=== PATIENT | male | born 1970 | race Caucasian/White ===

== ENCOUNTER 2021-06-27 13:22 | Emergency (ER) | payer OTHER, SELFPAY ==
--- NOTE | ~2021-06-27 | XR_ITS ---
EXAMINATION: XR chest 2V DATE: 06/27/2021 13:47 INDICATION: Fever and shortness of breath, COVID exposure TECHNIQUE: PA and lateral views of the chest are obtained. COMPARISON: None available FINDINGS: There are minimal airspace opacities of the lung bases. There is no pleural effusion or pne umothorax. The cardiomediastinal silhouette is normal. There is moderate thoracic spondylosis. IMPRESSION: 1. Minimal airspace opacities of the lung bases, consistent with atelectasis versus pneumonia. Reviewed, dictated and finalized at location A. IMPRESSION: 1. Minimal airspace opacities of the lung bases, consistent with atelectasis ve rsus pneumonia.
[2021-06-27 13:26] VITALS: BP 163/103; PULSE 113; RESP 14; TEMP 37.2; O2SAT 100
--- NOTE | 2021-06-27 13:34 | PC.NURSE ---
PT states he has been out of bp med for years, he is homeless.
[2021-06-27 14:04] LABS: Basophils Percent Auto 0.2 % (0.2-1.2); Eosinophils Percent Auto 0.2 % (0-4.4); Hematocrit 38.6 % (42.0-52.0); Hemoglobin 12.7 g/dL (14.0-18.0); Immature Granulocyte Absolute 0.01 K/mm3 (0.00-0.031); Immature Granulocyte Percent A 0.2 % (0-0.5); Lymphocytes Absolute Auto 0.86 K/mm3 (0.9-3.2); Lymphocytes Percent Auto 15.7 % (18.3-44.2); Mean Corpuscular HGB Conc 32.9 g/dl (32-36); Mean Corpuscular Hemoglobin 30.6 pg (26-34); Mean Platelet Volume 10.2 fl (7.4-10.4); Monocytes Absolute Auto 0.6 K/mm3 (0.1-0.6); Monocytes Percent Auto 10.8 % (2.6-8.5); Neutrophils Percent Auto 72.9 % (45.5-73.1); Platelet Count Result 225 k/mm3 (150-375); Red Blood Count 4.15 M/mm3 (4.6-6.20); Red Cell Distribution Width 11.8 % (11.5-14.5); White Blood Count 5.5 K/mm3 (4.5-10.0)
[2021-06-27 14:18] LABS: Alanine Aminotransferase 16 U/L (4-50); Albumin Level 4.3 g/dL (3.5-5.1); Alkaline Phosphatase 103 U/L (38-126); Anion Gap 6 mmol/L (8-16); Aspartate Amino Transferase 28 U/L (17-59); Bilirubin,Total 0.3 mg/dL (0.2-1.3); Blood Urea Nitrogen 13 mg/dL (9-20); Calcium 9.3 mg/dL (8.4-10.2); Carbon Dioxide 32 mmol/L (22-30); Chloride 99 mmol/L (98-107); Estimated CRCL calculation 84 ml/min; Estimated Glomerular Filt Rate > 60; Glucose 104 mg/dL (65-110); Potassium 4.1 mmol/L (3.4-5.0); Sodium 137 mmol/L (137-145)
[2021-06-27 14:33] VITALS: BP 160/95; PULSE 107; RESP 20; TEMP 36.8; O2SAT 100
--- NOTE | 2021-06-27 16:08 | ED.GENADULT ---
HPI - General Adult General Chief complaint: Upper Respiratory Infection Stated complaint: ache, cough Time Seen by Provider: 06/27/21 15:23 Source: patient Mode of arrival: ambulatory Limitations: no limitations History of Present Illness HPI narrative: Patient is here to get checked out as his roommate is Covid positive. He was feeling ill several days ago, and is now feeling better. He denies of cough, fever shortness of breath,. Onset (ago): day(s) Associated symptoms: denies other symptoms Related Data Home Medications Medication Instructions Recorded Confirmed No Home Medications 06/27/21 06/27/21 Allergies Allergy/AdvReac Type Severity Reaction Status Date / Time No Known Allergies Allergy Verified 06/27/21 14:32 Review of Systems Review of Systems: All systems reviewed & are unremarkable except as noted in HPI and below PMFSH Past Medical History Medical History (Updated 06/27/21 @ 17:11 by Nadia Hui PA-C) Hypertension Social History Social History (Updated 06/27/21 @ 16:15 by Nadia Hui PA-C) Smoking status: Never smoker Alcohol intake: never Substance use: never Living arrangements: with friend(s) Occupation/Education: unemployed Exam Const: General: healthy appearing, no acute distress and alert Orientation/consciousness: patient oriented x3 HENMT: Head: normal to inspection Eyes: Pupils: Equal, round and reactive pupils present Neck: Neck: no lymphadenopathy Resp: Effort & Inspection: normal respiratory effort Auscultation: clear to auscultation bilaterally Cardio: Rate: regular rate Rhythm: regular rhythm Skin: General skin exam: normal color Neuro: General: moves all extremities Extrem: General: normal to inspection Psych: Mental Status: mental status grossly normal Course Course Emergency Course: Chest xray is consistent with viral pneumonia, pt is getting better. will treat with IS only. Vital Signs Vital signs: Vital Signs Temperature 37.2 C 06/27/21 13:26 Pulse Rate 113 H 06/27/21 13:26 Respiratory Rate 14 06/27/21 13:26 Blood Pressure 163/103 H 06/27/21 13:26 Pulse Oximetry 100 06/27/21 13:26 Temperature 36.8 C 06/27/21 14:33 Pulse Rate 107 H 06/27/21 14:33 Respiratory Rate 20 06/27/21 14:33 Blood Pressure 160/95 H 06/27/21 14:33 Pulse Oximetry 100 06/27/21 14:33 Medical Decision Making Vital Signs Vital Signs: Vital Signs Temperature 37.2 C 06/27/21 13:26 Pulse Rate 113 H 06/27/21 13:26 Respiratory Rate 14 06/27/21 13:26 Blood Pressure 163/103 H 06/27/21 13:26 Pulse Oximetry 100 06/27/21 13:26 Temperature 36.8 C 06/27/21 14:33 Pulse Rate 107 H 06/27/21 14:33 Respiratory Rate 20 06/27/21 14:33 Blood Pressure 160/95 H 06/27/21 14:33 Pulse Oximetry 100 06/27/21 14:33 Lab Data Result diagrams: 06/27/21 13:39 06/27/21 13:39 Labs: Lab Results 06/27/21 06/27/21 06/27/21 Range/Units 13:39 13:39 14:51 WBC 5.5 (4.5-10.0) K/mm3 RBC 4.15 L (4.6-6.20) M/mm3 Hgb 12.7 L (14.0-18.0) g/dL Hct 38.6 L (42.0-52.0) % MCV 93.0 (80-100) fl MCH 30.6 (26-34) pg MCHC 32.9 (32-36) g/dl RDW 11.8 (11.5-14.5) % Plt Count 225 (150-375) k/mm3 MPV 10.2 (7.4-10.4) fl Immature Gran % (Auto) 0.2 (0-0.5) % Neut % (Auto) 72.9 (45.5-73.1) % Lymph % (Auto) 15.7 L (18.3-44.2) % [place] % (Auto) 10.8 H (2.6-8.5) % Eos % (Auto) 0.2 (0-4.4) % Baso % (Auto) 0.2 (0.2-1.2) % Lymph # (Auto) 0.86 L (0.9-3.2) K/mm3 [place] # (Auto) 0.6 (0.1-0.6) K/mm3 Eos # (Auto) 0.0 (0-0.3) K/mm3 Baso # (Auto) 0.0 (0.0-0.1) K/mm3 Abs Immat Gran (auto) 0.01 (0.00-0.031) K/mm3 Absolute Neuts (auto) 4.0 (1.3-6.7) K/mm3 Absolute Nucleated RBC 0.0 (0.0-0.012) K/mm3 Nucleated RBC % 0.0 (0.0-0.2) % Sodium 137 (137-145) mmol/L Potassium 4.1 (3.4-5.0) mmo
[2021-06-27 17:32] VITALS: BP 145/97
[2021-06-28 15:30] LABS: SARS-CoV-2 RNA PCR Positive
== END 2021-06-27 17:34 | disposition home or self-care (01) ==
PROVIDERS: Emergency Medicine; Emergency Provider Emergency Medicine
DX: U07.1 COVID-19 (principal); I10 Essential (primary) hypertension
CPT/HCPCS: 36415; 71046; 80053; 85025; 99283; C9803; U0003; U0005

== ENCOUNTER 2021-07-05 18:28 | Inpatient (IN) | payer OTHER, SELFPAY ==
[2021-07-05] VITALS (18 sets, daily range): BP systolic 129–158; BP diastolic 80–100; PULSE 89–115; RESP 18–30; TEMP 36.8–37.4; O2SAT 92–99; BMI 25.7
--- NOTE | ~2021-07-05 | XR_ITS ---
XR chest 1V portable 07/05/2021 18:51 Indication: Shortness of breath Procedure: AP portable chest Comparison: 06/27/2021 Findings: Developing patchy bilateral airspace disease, compatible with pneumonia. No pleural effusio n or pneumothorax. No acute osseous abnormality. Impression: 1: Developing patchy bilateral airspace disease, compatible with pneumonia. Reviewed, dictated and finalized at location A. Impression: 1: Developing patchy bilateral airspace disease, compatible with pneumonia.
--- NOTE | ~2021-07-05 | CT_ITS ---
EXAMINATION: CTA chest PE protocol DATE: 07/05/2021 20:45 CDT INDICATION: Shortness of breath. Covid. TECHNIQUE: Computed tomographic angiography (CTA) of the chest was performed with 100 mL Omnipaque-35 0 intravenous contrast. The dose-length product was 616.07 mGy-cm. Maximum intensity projection 3D-re constructions of the aorta and other arteries were constructed by the technologist on a separate work station. Automated exposure control and iterative reconstruction technique were employed. COMPARISON: None. FINDINGS: There is a filling defects in left lower lobe segmental pulmonary artery. There are small filling def ects in subsegmental pulmonary arteries of the right upper lobe. Small thrombus burden. There is medi astinal and hilar lymphadenopathy. Cardiomegaly. No significant pleural or pericardial effusion. Ther e is patchy groundglass opacification and consolidation involving all segments of the lung, consisten t with pneumonia. No pneumothorax. No endobronchial lesions. There are mild wedge compression fractur es of T5-T8, likely chronic. IMPRESSION: 1. Small filling defects bilateral segmental/subsegmental pulmonary arteries consistent with pulmonar y embolism, small thrombus burden. 2: Patchy bilateral airspace consolidation, consistent with pneumonia. 3: Mediastinal and hilar lymphadenopathy, likely reactive. Reviewed, dictated and finalized at location A. IMPRESSION: 1. Small filling defects bilateral segmental/subsegmental pulmonary arteries co nsistent with pulmonary embolism, small thrombus burden. 2: Patchy bilateral airspace consolidation, consistent with pneumonia. 3: Mediastinal and hilar lymphadenopathy, likely reactive.
--- NOTE | ~2021-07-05 | US_ITS ---
EXAMINATION:US venous doppler LE BI INDICATION:Pulmonary embolism. Covid TECHNIQUE: Multiple grayscale, color flow and Doppler images of the right and left lower extremity de ep venous systems were obtained and reviewed. COMPARISON:No prior studies for comparison. FINDINGS: The common femoral, superficial femoral and popliteal veins demonstrate normal respiratory variation, augmentation and compressibility. Color flow is also seen within the posterior tibial, pe roneal, greater saphenous and profunda veins. IMPRESSION: 1: No lower extremity deep venous thrombosis. Reviewed, dictated and finalized at location A.
--- NOTE | 2021-07-05 18:25 | ED.URI ---
HPI - URI/Sore Throat General Chief Complaint: Shortness of Breath/Dyspnea Stated Complaint: covid +, SOB Source: patient and EMS Mode of arrival: EMS Limitations: no limitations History of Present Illness HPI Narrative: The patient is a 51 yo male with a history of HTN who presents for evaluation of shortness of breath. Patient states that he is on day 9 of Covid illness, initially presented to this emergency department on 06/27 and was symptomatic with a positive swab. Patient states he has had worsening shortness of breath since that time. He denies any overt chest pain for me. He reports difficulty taking a deep breath, states that anytime he moves he feels as if he cannot breathe. He denies any shoulder pain, neck pain or jaw pain. He reports all over myalgia pain. States he has had subjective fevers and chills. He has had no sense of taste for several days. He reports rhinorrhea, congestion and diarrhea. Denies rash. Patient is homeless. Patient does not know who is sick contact was. States he tries to stay at shelters but has been trying to stay away from them for the most part given the pandemic. He is not vaccinated. Related Data Home Medications Medication Instructions Recorded Confirmed No Home Medications 06/27/21 06/27/21 Allergies Allergy/AdvReac Type Severity Reaction Status Date / Time No Known Allergies Allergy Verified 07/05/21 18:33 Review of Systems Review of Systems: CONSTITUTIONAL: Reports fever and chills EYES: Denies visual changes, redness, or discharge. ENT: Reports rhinorrhea and congestion. CARDIOVASCULAR: Denies chest pain, palpitations, or edema. RESPIRATORY: Reports cough and shortness of breath GASTROINTESTINAL: Denies abdominal pain, reports nausea and vomiting GENITOURINARY: Denies dysuria or hematuria. SKIN: Denies rash or itching. MUSCULOSKELETAL: Denies back pain, joint pain, reports however myalgias NEUROLOGIC: Denies headache, numbness, or weakness. [facility] Past Medical History Medical History Hypertension Social History Social History (Updated 06/27/21 @ 16:15 by Nadia Hui PA-C) Smoking status: Never smoker Alcohol intake: never Substance use: never Exam Narrative: GENERAL: Awake, alert, ill-appearing, fatigued HEAD: Normocephalic, atraumatic. EYES: PERRLA and EOMI. ENT: Nares clear, no rhinorrhea or epistaxis. Mucous membranes dry NECK: Supple. CHEST: Tachypneic to 30s, coarse breath sounds bilaterally, no wheezing HEART: Tachycardic rate, sinus rhythm ABDOMEN:Non distended, non tender EXTREMITIES: Normal range of motion. No edema. SKIN: Warm, dry, no rash. NEURO:No focal deficits. Alert and oriented x3 Course Vital Signs Vital signs: Vital Signs Temperature 36.8 C 07/05/21 18:26 Pulse Rate 115 H 07/05/21 18:26 Respiratory Rate 30 H 07/05/21 18:26 Blood Pressure 139/97 H 07/05/21 18:26 Pulse Oximetry 93 07/05/21 18:26 Temperature 36.8 C 07/05/21 18:26 Pulse Rate 93 07/05/21 20:24 Respiratory Rate 23 H 07/05/21 20:24 Blood Pressure 158/80 H 07/05/21 20:24 Pulse Oximetry 98 07/05/21 20:24 MDM - URI/Sore Throat MDM Narrative Medical decision making narrative: Patient presenting for evaluation of shortness of breath in the setting of recently diagnosed Covid infection. Patient with positive Covid test on June 27 at this facility. At the time of assessment, patient is tachycardic and tachypneic. IV access obtained and labs are drawn. Patient's oxygen saturation is borderline hypoxemic on room air, whenever he exerts himself he does desaturate. Patient was placed on 2 L for help with his work of breathing. He has very mild hyponatremia. No acute kidney injury. His BUN is elevated suggestive of dehydration. He does have evidence of small pulmonary emboli on his CT scan without evidence of right heart strain. Heparin ordered for patient. Will add on trop
--- NOTE | 2021-07-05 18:30 | ECG_ITS ---
Measurements Intervals [place] Rate: 112 P: 37 WV: 124 QRS: -14 QRSD: 104 T: 20 QT: 326 QTc: 446 Interpretive Statements SINUS TACHYCARDIA VOLTAGE CRITERIA FOR LVH INFERIOR INFARCT, AGE INDETERMINATE ABNORMAL ECG Electronically Signed On 07-05-2021 20:56:13 CDT by Miguel Youssef D.O.
[2021-07-05] MEDS: SODIUM CHLORIDE 0.9% IV 1,000 ML 999 ML IV CONT (18:58)
[2021-07-05] MEDS: MORPHINE SULFATE (*CRX) 4 MG/ML INJ IV PUSH (18:58)
[2021-07-05] MEDS: ONDANSETRON INJ 4 MG/2 ML VIAL IV PUSH (18:58)
[2021-07-05 19:44] LABS: Basophils Percent Auto 0.3 % (0.2-1.2); Eosinophils Percent Auto 0.1 % (0-4.4); Hemoglobin 11.9 g/dL (14.0-18.0); Immature Granulocyte Absolute 0.05 K/mm3 (0.00-0.031); Immature Granulocyte Percent A 0.7 % (0-0.5); Lymphocytes Absolute Auto 1.05 K/mm3 (0.9-3.2); Lymphocytes Percent Auto 15.7 % (18.3-44.2); Mean Corpuscular HGB Conc 32.2 g/dl (32-36); Mean Corpuscular Hemoglobin 30.6 pg (26-34); Mean Corpuscular Volume 95.1 fl (80-100); Mean Platelet Volume 9.8 fl (7.4-10.4); Monocytes Absolute Auto 0.9 K/mm3 (0.1-0.6); Neutrophils Absolute Auto 4.7 K/mm3 (1.3-6.7); Neutrophils Percent Auto 70.2 % (45.5-73.1); Platelet Count Result 241 k/mm3 (150-375); Red Blood Count 3.89 M/mm3 (4.6-6.20); Red Cell Distribution Width 11.9 % (11.5-14.5); White Blood Count 6.7 K/mm3 (4.5-10.0)
[2021-07-05 19:57] LABS: Alanine Aminotransferase 16 U/L (4-50); Albumin Level 3.5 g/dL (3.5-5.1); Alkaline Phosphatase 60 U/L (38-126); Anion Gap 7 mmol/L (8-16); Aspartate Amino Transferase 33 U/L (17-59); Bilirubin,Total 0.6 mg/dL (0.2-1.3); Blood Urea Nitrogen 24 mg/dL (9-20); Calcium 8.5 mg/dL (8.4-10.2); Carbon Dioxide 22 mmol/L (22-30); Chloride 102 mmol/L (98-107); Creatine Kinase 70 U/L (55-170); Estimated CRCL calculation 76 ml/min; Estimated Glomerular Filt Rate > 60; Glucose 96 mg/dL (65-110); Potassium 3.7 mmol/L (3.4-5.0); Sodium 131 mmol/L (137-145)
--- NOTE | 2021-07-05 20:06 | PM.IMHP ---
H&P: HPI History of Present Illness Date/Time: 07/05/21 20:06 Chief Complaint: Shortness of breath Narrative: The patient is a 51 yo male with a history of HTN who presents for evaluation of shortness of breath That has been worsening since past few days. Patient states that he was diagnosed with COVID on 06/27/2021. He had can come to the ED on that day for evaluation for COVID symptoms. He was having cough shortness of breath sore throat nausea diarrhea typical of COVID symptoms at that time. Since discharge he has been progressively getting short of breath and hence came to the ED today for evaluation. He was noted to be hypoxic even with minimal exertion and he was placed on oxygen supplementation. A chest x-ray reveals bilateral pneumonia suggestive of COVID pneumonia. With hypoxia he will had a CTA done which came back positive for PE. His been started on IV heparin in the ER is getting admitted for further evaluation and management. He lives in a [facility] and had been trying to stay away from it because of the COVID. He is not vaccinated. Review of Systems Review of Systems: - CONSTITUTIONAL: Denies weight loss, Reports history of fever and chills. - HEENT: Denies changes in vision and hearing - RESPIRATORY: reportsSOB and cough. - CV: Denies palpitations and reports some intermittent left-sided CP. - GI: Denies abdominal pain, nausea, vomiting and diarrhea. - : Denies dysuria and urinary frequency. - MSK: Denies myalgia and joint pain. - SKIN: Denies rash and pruritus. - NEUROLOGICAL: Denies headache and syncope. - PSYCHIATRIC: Denies recent changes in mood. Denies anxiety and depression. All systems reviewed & are unremarkable except as noted in HPI and below Constitutional: Constitutional: Reports fatigue and Reports weakness Neurologic: Reports weakness Endocrine: Endocrine: Reports fatigue PMFSH Past Medical History Medical History Hypertension Social History Social History (Updated 06/27/21 @ 16:15 by Nadia Hui PA-C) Smoking status: Never smoker Alcohol intake: never Substance use: never Spiritual care concerns: No Meds Home Medications and Allergies Home Medications Medication Instructions Recorded Confirmed Type No Home Medications 06/27/21 07/05/21 History Allergies Allergy/AdvReac Type Severity Reaction Status Date / Time No Known Allergies Allergy Verified 07/05/21 18:33 Vital Signs Vital Signs - 24 hr 07/05/21 18:26 07/05/21 18:33 Temperature 98.3 F Pulse Rate 115 H Respiratory Rate 30 H Blood Pressure 139/97 H Pulse Oximetry 93 96 Exam Narrative: GENERAL: Awake, alert, frail looking HEAD: Normocephalic, atraumatic. EYES: PERRLA and EOMI. ENT: Nares clear, no rhinorrhea or epistaxis. Mucous membranes dry NECK: Supple. CHEST:coarse breath sounds bilaterally, no wheezing no respiratory distress HEART: regularrate, sinus rhythm ABDOMEN:Non distended, non tender EXTREMITIES: Normal range of motion. No edema. SKIN: Warm, dry, no rash. NEURO:No focal deficits. Alert and oriented x3 H&P: Results Labs Labs: Short CBC 07/05/21 Range/Units 19:31 WBC 6.7 (4.5-10.0) K/mm3 Hgb 11.9 L (14.0-18.0) g/dL Hct 37.0 L (42.0-52.0) % Plt Count 241 (150-375) k/mm3 BMP 07/05/21 19:31 Sodium 131 L Potassium 3.7 Chloride 102 Carbon Dioxide 22 BUN 24 H D Creatinine 1.00 Glucose 96 Calcium 8.5 Cardiac Enzymes 07/05/21 07/05/21 Range/Units 19:31 19:31 Total Creatine Kinase 70 Cancelled (55-170) U/L Liver Function 07/05/21 07/05/21 Range/Units 19:31 19:31 Total Bilirubin 0.6 Cancelled (0.2-1.3) mg/dL Direct Bilirubin 0.0 Cancelled (0-0.3) mg/dL AST 33 Cancelled (17-59) U/L ALT 16 Cancelled (4-50) U/L Alkaline Phosphatase 60 Cancelled (38-126) U/L Albumin 3.5 Cancelled (3.5-5.1) g/dL Asse
[2021-07-05 21:36] LABS: INR 1.1; Prothrombin Time 13.9 Seconds (11.1-14.7)
[2021-07-05 21:37] LABS: Partial Thromboplastin Time 32.5 SECONDS (22.3-36.8)
[2021-07-05] MEDS: HEPARIN SOD/D5W 100 UNITS/ML 25,000 UNITS/250 ML BAG 14 UNITS IV CONT (21:45)
[2021-07-05] MEDS: HEPARIN SODIUM 5,000 UNITS/ML VIAL 7000 UNITS IV PUSH (21:45)
[2021-07-05 21:57] LABS: Lactate Dehydrogenase 618 U/L (313-618)
[2021-07-05 22:32] LABS: Basophils Percent Auto 0.2 % (0.2-1.2); Hematocrit 34.5 % (42.0-52.0); Hemoglobin 11.7 g/dL (14.0-18.0); Immature Granulocyte Absolute 0.05 K/mm3 (0.00-0.031); Immature Granulocyte Percent A 0.8 % (0-0.5); Lymphocytes Absolute Auto 0.59 K/mm3 (0.9-3.2); Lymphocytes Percent Auto 9.7 % (18.3-44.2); Mean Corpuscular HGB Conc 33.9 g/dl (32-36); Mean Corpuscular Hemoglobin 31.5 pg (26-34); Mean Corpuscular Volume 92.7 fl (80-100); Mean Platelet Volume 9.7 fl (7.4-10.4); Monocytes Absolute Auto 0.3 K/mm3 (0.1-0.6); Monocytes Percent Auto 4.6 % (2.6-8.5); Neutrophils Absolute Auto 5.2 K/mm3 (1.3-6.7); Neutrophils Percent Auto 84.7 % (45.5-73.1); Platelet Count Result 255 k/mm3 (150-375); Red Blood Count 3.72 M/mm3 (4.6-6.20); Red Cell Distribution Width 11.8 % (11.5-14.5); White Blood Count 6.1 K/mm3 (4.5-10.0)
[2021-07-05 22:57] LABS: NT Pro B Type Natriuretic Pept 66 pg/mL (5-100); Troponin I < 0.012 ng/mL (0.000-0.034)
[2021-07-06] VITALS (9 sets, daily range): BP systolic 119–141; BP diastolic 71–89; PULSE 77–94; RESP 16–21; TEMP 36–36.6; O2SAT 93–98
[2021-07-06 05:49] LABS: Partial Thromboplastin Time 148.5 SECONDS (22.3-36.8)
[2021-07-06 06:00] LABS: Hematocrit 37.1 % (42.0-52.0); Hemoglobin 12.4 g/dL (14.0-18.0); Mean Corpuscular HGB Conc 33.4 g/dl (32-36); Mean Corpuscular Hemoglobin 31.3 pg (26-34); Mean Corpuscular Volume 93.7 fl (80-100); Mean Platelet Volume 10.2 fl (7.4-10.4); Platelet Count Result 286 k/mm3 (150-375); Red Blood Count 3.96 M/mm3 (4.6-6.20); Red Cell Distribution Width 11.7 % (11.5-14.5); White Blood Count 2.6 K/mm3 (4.5-10.0)
--- NOTE | 2021-07-06 08:04 | ADMGEN ---
This patient, Luis Enrique Hanks, was admitted to [facility] Surg Room 327-01. Patient/family oriented to hospital policies and general routines including ID bracelet, bed and alarms, visiting hours, pain management, procedures, bathroom and other care routines, personal items, smoking policy, room service/diet, and visiting hours. Information on how to activate the Rapid Response Team has been discussed. Patient/Family are encouraged to report perceived risks to care and to ask questions if they do not understand what they are told or what they should do. Discussed call light use, bedside urinal, current treatments, and medical tests. Patient had no questions, was pleasant, and not very interactive. He denied any substance use or past medical history. His observable skin was intact though he said he wanted to keep his pants on. His SpO2 was normal throughout the night and weaned down to 1 lpm. He denied pain and appeared to rest peacefully.
[2021-07-06] MEDS: ALBUTEROL SULFATE (*SP) INHALER 2 PUFF INHALATION ×4 (08:46→20:25)
[2021-07-06] MEDS: DEXAMETHASONE SOD PHOS INJ 4 MG/ML VIAL 6 MG IV PUSH (09:09)
[2021-07-06 11:52] LABS: Band Neutrophils Percent 1 % (0-6); Lymphocytes Absolute Manual 0.39 K/mm3 (1.1-4.5); Monocytes Absolute Manual 0.05 K/mm3 (0.1-0.90); Monocytes Percent Manual 2 % (3-9); Neutrophils Absolute Manual 2.15 K/mm3 (1.3-6.7); Neutrophils Percent Manual 82 % (46-73); Total Cells Counted 100
[2021-07-06 11:53] LABS: Platelet Estimate Adequate (Adequate)
[2021-07-06 13:53] LABS: Partial Thromboplastin Time 77.7 SECONDS (22.3-36.8)
--- NOTE | 2021-07-06 16:08 | PM.IMPN ---
Progress Note: A&P Assessment and Plan (1) Acute respiratory failure with hypoxia: Code(s): J96.01 - Acute respiratory failure with hypoxia Status: Acute Assessment and Plan: Secondary to COVID-19 and pulmonary embolism D-dimer elevated at 148.5 CTA did find a pulmonary artery bilateral airspace consolidation COVID positive 06/27/2021 Continue Decadron and inhalers Trend SpO2 Heparin drip (2) Pneumonia due to COVID-19 virus: Code(s): U07.1 - COVID-19; J12.82 - Pneumonia due to coronavirus disease 2018 Status: Acute Assessment and Plan: See above (3) Hypertension: Code(s): I10 - Essential (primary) hypertension Status: Acute Assessment and Plan: Blood pressure this morning was 148/89 Current blood pressure 124/75 Trend blood pressure Adjust medications as needed (4) Hyponatremia: Code(s): E87.1 - Hypo-osmolality and hyponatremia Status: Acute Assessment and Plan: Sodium is 131 Regular diet Trend sodium (5) Dehydration: Code(s): E86.0 - Dehydration Status: Acute Assessment and Plan: Sodium chloride bolus in the ED Trend BUN and creatinine Monitor I&Os Encourage p.o. intake (6) Pulmonary embolism: Qualifiers: Pulmonary embolism type: multiple subsegmental (without acute cor pulmonale) Qualified Code(s): I26.94 - Multiple subsegmental pulmonary emboli without acute cor pulmonale Code(s): I26.99 - Other pulmonary embolism without acute cor pulmonale Status: Acute Assessment and Plan: CT showed positive for PE Heparin drip Supplemental oxygen SCDs Will get venous Dopplers Echo Subjective Date/time seen: 07/06/21 13:41 Interval history: Patient is a 51-year-old male who is here for COVID-19 and PE. Patient did seem pretty lethargic and drowsy while I was in there interviewing him. He did state that he was having a little bit chest pain and shortness of breath was about the same. He does have a cough but nothing coming up with that and he is weak and tired. He did state that he had some weird feelings in his stomach little pain but not too bad. Patient did say that he was photophobic at this time any a headache. He was on room air sat about 93%. And he is having sweats. He denies any urinary dysfunction. Review of Systems Review of Systems: All systems reviewed & are unremarkable except as noted in HPI and below Exam Const: General: cooperative, healthy appearing, no acute distress, well developed, alert and awake Nutritional Appearance: well nourished Orientation/consciousness: patient oriented x3 Limitations: no limitations HENMT: Head: normal to inspection Ears: hearing grossly normal bilaterally General nose exam: Normal external nose present Mouth: Yes Normal oral and palatal mucosa present, Yes lip normal and Yes tongue normal Teeth and gingiva: abnormal tooth and associated gingiva and poor dentition Eyes: General: appearance normal, both eyes and all related structures Neck: Neck: normal visual inspection, full ROM, trachea midline and supple Chest: Chest palpation & inspection: normal inspection of the chest Resp: Effort & Inspection: normal respiratory effort and able to speak in complete sentences Auscultation: clear to auscultation bilaterally Cardio: Jugular venous distension: no JVD Rate: regular rate Rhythm: regular rhythm Heart sounds: S1 normal heart sound present and S2 normal heart sound present Peripheral pulses: Peripheral pulses 2+ throughout GI: Inspection: normal to inspection GI Palp: Yes Soft to palpation and No Tenderness to palpation present (GI) Auscultation: normal bowel sounds Skin: General skin exam: normal color and no rashes or lesions noted Lesions: no lesions Rashes: no rashes Trauma: no lacerations or abrasions Wounds: no wounds Hair: normal Nails: normal N
[2021-07-06] MEDS: HEPARIN SOD/D5W 100 UNITS/ML 25,000 UNITS/250 ML BAG 12 UNITS IV CONT (18:29)
[2021-07-06 21:02] LABS: Partial Thromboplastin Time 64.5 SECONDS (22.3-36.8)
[2021-07-06] MEDS: HEPARIN SODIUM 5,000 UNITS/ML VIAL 3000 UNITS IV PUSH (22:44)
[2021-07-07] VITALS (7 sets, daily range): BP systolic 129–143; BP diastolic 82–95; PULSE 82–93; RESP 14–18; TEMP 36.1–36.8; O2SAT 88–100
--- NOTE | 2021-07-07 | ECHO_ITS ---
Patient Info Name: Luis Enrique Hanks Age: 51 years : 1970 Gender: Male Ht: 69 in Wt: 174 lbs BSA: 1.97 m2 HR: 93 bpm BP: 130 / 85 mmHg Exam Date: 07/07/2021 10:05 AM Exam Location: [facility] Patient Status: Inpatient Admit Date: 07/05/2021 Staff Ordering Physician: Roshan Alexander Buckle Attaching Machine Operator: Jamie Barron RDCS, RT Attending Provider: Juanito Lombardi MD Referring Physician: Benjmain GARCIA; Exam Type: CA echo doppler color flow Study Info Indications I50.9 - Heart failure, unspecified Complete two-dimensional, color flow and Doppler transthoracic echocardiogram is performed. Strain analysis performed. Summary 1. Complete two-dimensional, color flow and Doppler transthoracic echocardiogram is performed. 2. Left ventricular chamber dimension is normal. 3. Left ventricular systolic function is normal, estimated at 60-65%. 4. The left ventricular diastolic function is grade I diastolic dysfunction. 5. E/e' 4 is not elevated. 6. Global longitudinal strain is mildly abnormal at -16.4%. Left Ventricle E/e' 4 is not elevated. Global longitudinal strain is mildly abnormal at -16.4%. Left ventricular chamber dimension is normal. Left ventricular systolic function is normal, estimated at 60-65%. The left ventricular diastolic function is grade I diastolic dysfunction. Right Ventricle Right ventricular systolic function is normal and with normal TAPSE 2.5 cm. Right ventricular chamber dimension is normal. Left Atria Left atrial chamber dimension is normal. Right Atria Right atrial chamber dimension is normal. Aortic Valve The aortic valve is trileaflet. There is no aortic valve stenosis. There is no aortic valve regurgitation. Pulmonic Valve There is no pulmonic regurgitation. Mitral Valve There is no mitral valve stenosis. There is no mitral valve regurgitation. Tricuspid Valve There is no tricuspid valve regurgitation. Pericardium/Pleural There is no pericardial effusion. Inferior Vena Cava Normal inferior vena cava with >50% collapse upon inspiration consistent with normal right atrial pressure, 5 mmHg. Aorta The aortic root size at the sinus of Valsalva is normal. Left Ventricular Outflow Tract Name Value Normal LVOT 2D LVOT Diameter 2.2 cm LVOT Doppler LVOT Peak Gradient 6 mmHg LVOT Mean Gradient 3 mmHg LVOT VTI 19 cm LVOT VTI/AV VTI Ratio 0.8 LVOT Stroke Volume 75 ml LVOT CO 6.8 l/min LVOT CI 3.4 l/min/m2 Mitral Valve Name Value Normal MV Doppler MV Decel Archer 218 cm/s2 MV PHT 61 ms MV Area (PHT)
[2021-07-07 06:43] LABS: Basophils Percent Auto 0.1 % (0.2-1.2); Hematocrit 35.9 % (42.0-52.0); Immature Granulocyte Absolute 0.07 K/mm3 (0.00-0.031); Lymphocytes Absolute Auto 1.42 K/mm3 (0.9-3.2); Lymphocytes Percent Auto 19.7 % (18.3-44.2); Mean Corpuscular HGB Conc 33.4 g/dl (32-36); Mean Corpuscular Hemoglobin 31.1 pg (26-34); Mean Platelet Volume 10.1 fl (7.4-10.4); Monocytes Absolute Auto 0.9 K/mm3 (0.1-0.6); Monocytes Percent Auto 12.5 % (2.6-8.5); Neutrophils Absolute Auto 4.8 K/mm3 (1.3-6.7); Neutrophils Percent Auto 66.7 % (45.5-73.1); Platelet Count Result 341 k/mm3 (150-375); Red Blood Count 3.86 M/mm3 (4.6-6.20); Red Cell Distribution Width 11.9 % (11.5-14.5); White Blood Count 7.2 K/mm3 (4.5-10.0)
[2021-07-07 07:17] LABS: Alanine Aminotransferase 16 U/L (4-50); Albumin Level 3.4 g/dL (3.5-5.1); Alkaline Phosphatase 63 U/L (38-126); Anion Gap 6 mmol/L (8-16); Aspartate Amino Transferase 30 U/L (17-59); Bilirubin,Total 0.4 mg/dL (0.2-1.3); Blood Urea Nitrogen 25 mg/dL (9-20); CRP 5.5 mg/dL (<1.0); Calcium 8.7 mg/dL (8.4-10.2); Carbon Dioxide 26 mmol/L (22-30); Chloride 106 mmol/L (98-107); Estimated CRCL calculation 84 ml/min; Estimated Glomerular Filt Rate > 60; Glucose 131 mg/dL (65-110); Lactate Dehydrogenase 507 U/L (313-618); Magnesium 2.2 mg/dL (1.6-2.3); Potassium 3.5 mmol/L (3.4-5.0); Sodium 138 mmol/L (137-145)
[2021-07-07 07:28] LABS: Partial Thromboplastin Time 96.6 SECONDS (22.3-36.8)
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
[2021-07-07] MEDS: DEXAMETHASONE SOD PHOS INJ 4 MG/ML VIAL 6 MG IV PUSH (09:00)
[2021-07-07] MEDS: ALBUTEROL SULFATE (*SP) INHALER 2 PUFF INHALATION ×3 (09:21→20:26)
[2021-07-07] MEDS: ALPRAZolam (*CRX) 0.125 MG TABLET PO ×3 (12:01→20:26)
[2021-07-07] MEDS: HEPARIN SOD/D5W 100 UNITS/ML 25,000 UNITS/250 ML BAG 14 UNITS IV CONT (13:27)
[2021-07-07 13:34] LABS: Partial Thromboplastin Time 79.6 SECONDS (22.3-36.8)
[2021-07-08] VITALS (9 sets, daily range): BP systolic 113–147; BP diastolic 71–94; PULSE 72–88; RESP 12–20; TEMP 36.3–36.7; O2SAT 87–99
[2021-07-08 07:03] LABS: Partial Thromboplastin Time 26.2 SECONDS (22.3-36.8)
[2021-07-08] MEDS: HEPARIN SOD/D5W 100 UNITS/ML 25,000 UNITS/250 ML BAG 17 UNITS IV CONT ×3 (07:40→21:35)
[2021-07-08] MEDS: HEPARIN SODIUM 5,000 UNITS/ML VIAL 6500 UNITS IV PUSH (07:44)
[2021-07-08] MEDS: ALBUTEROL SULFATE (*SP) INHALER 2 PUFF INHALATION ×3 (08:55→20:55)
[2021-07-08] MEDS: DEXAMETHASONE SOD PHOS INJ 4 MG/ML VIAL 6 MG IV PUSH (09:21)
[2021-07-08] MEDS: ALPRAZolam (*CRX) 0.125 MG TABLET PO ×2 (12:52→16:38)
[2021-07-08 14:43] LABS: Partial Thromboplastin Time 72.8 SECONDS (22.3-36.8)
--- NOTE | 2021-07-08 15:03 | P.PNIM_ITS ---
Progress Note: A&P Assessment and Plan (1) Acute respiratory failure with hypoxia: Code(s): J96.01 - Acute respiratory failure with hypoxia Status: Acute Assessment and Plan: * Secondary to COVID-19 and pulmonary embolism * CTA did find a pulmonary artery bilateral airspace consolidation * D.Dimer trending down and is 0.6 today * COVID positive 06/27/2021 * Continue Decadron and inhalers * SPO2 90% on 2LNC, and 87% on room air * Heparin drip * transition to Coumadin 5mg PO * PT/INR tomorrow (2) Pneumonia due to COVID-19 virus: Code(s): U07.1 - COVID-19; J12.82 - Pneumonia due to coronavirus disease 2018 Status: Acute Assessment and Plan: * See above (3) Hypertension: Code(s): I10 - Essential (primary) hypertension Status: Acute Assessment and Plan: * Blood pressure this morning was 129/85 * Trend blood pressure * Adjust medications as needed (4) Hyponatremia: Code(s): E87.1 - Hypo-osmolality and hyponatremia Status: Acute Assessment and Plan: * Sodium is 138 * Regular diet * Trend sodium (5) Dehydration: Code(s): E86.0 - Dehydration Status: Acute Assessment and Plan: * Sodium chloride bolus in the ED * Trend BUN and creatinine, 25/0.9 today * Monitor I&Os * Encourage p.o. intake (6) Pulmonary embolism: Qualifiers: Pulmonary embolism type: multiple subsegmental (without acute cor pulmonale) Qualified Code(s): I26.94 - Multiple subsegmental pulmonary emboli without acute cor pulmonale Code(s): I26.99 - Other pulmonary embolism without acute cor pulmonale Status: Acute Assessment and Plan: * CT showed positive for PE * Heparin drip * Supplemental oxygen * SCDs * venous Dopplers negative for DVT * Echo 60-65% EF * Due to insurance and status will bride to warfarin * PT/INR trend (7) Leukocytopenia: Code(s): D72.819 - Decreased white blood cell count, unspecified Status: Acute Assessment and Plan: * WBC 2.6, trending up and today is 7.2 * ANC calc 2158 * Normal findings * Could be from Covid infection * trend labs (8) Anxiety and depression: Code(s): F41.9 - Anxiety disorder, unspecified; F32.9 - Major depressive disorder, single episode, unspecified Status: Acute Assessment and Plan: * This patient would benefit from a psych consult * Xanax 0.125mg PO ordered * Would like to start him on something but concerned that he will not be able to keep up with it post discharge * Care coordination consult * chestnut resources given * Ativan 0.5mg IV once Subjective Date/time seen: 07/08/21 11:30 Interval history: Patient is a 51 year old male here for treatment of a PE. He stated that he is feeling better. He denied chest pain. However, he could not tell me if he was short of breath since he has not gotten up yet. He really wants to take a shower. I did talk to him about the medications and needing to transition him to an oral medication. I explained that the medications that do not need lab work are very expensive and that he would have to keep up with them. The option of warfarin was also presented. I asked him if he would be able to keep up with the lab work. He said that he could. I think that this patient is going in and out of psychosis. I have talked to him
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
[2021-07-08 15:44] LABS: Basophils Percent Auto 0.1 % (0.2-1.2); Hematocrit 36.1 % (42.0-52.0); Hemoglobin 11.7 g/dL (14.0-18.0); Immature Granulocyte Absolute 0.05 K/mm3 (0.00-0.031); Immature Granulocyte Percent A 0.6 % (0-0.5); Lymphocytes Absolute Auto 0.72 K/mm3 (0.9-3.2); Lymphocytes Percent Auto 8.6 % (18.3-44.2); Mean Corpuscular HGB Conc 32.4 g/dl (32-36); Mean Corpuscular Hemoglobin 30.5 pg (26-34); Mean Corpuscular Volume 94.3 fl (80-100); Mean Platelet Volume 10.6 fl (7.4-10.4); Monocytes Absolute Auto 0.4 K/mm3 (0.1-0.6); Monocytes Percent Auto 4.4 % (2.6-8.5); Neutrophils Absolute Auto 7.2 K/mm3 (1.3-6.7); Neutrophils Percent Auto 86.3 % (45.5-73.1); Platelet Count Result 391 k/mm3 (150-375); Red Blood Count 3.83 M/mm3 (4.6-6.20); Red Cell Distribution Width 11.9 % (11.5-14.5); White Blood Count 8.4 K/mm3 (4.5-10.0)
[2021-07-08 15:48] LABS: INR 1.1; Prothrombin Time 13.6 Seconds (11.1-14.7)
[2021-07-08 15:56] LABS: Alanine Aminotransferase 24 U/L (4-50); Alkaline Phosphatase 60 U/L (38-126); Anion Gap 11 mmol/L (8-16); Aspartate Amino Transferase 43 U/L (17-59); Bilirubin,Total 0.4 mg/dL (0.2-1.3); Blood Urea Nitrogen 23 mg/dL (9-20); Calcium 8.6 mg/dL (8.4-10.2); Carbon Dioxide 22 mmol/L (22-30); Chloride 104 mmol/L (98-107); Estimated CRCL calculation 76 ml/min; Estimated Glomerular Filt Rate > 60; Glucose 197 mg/dL (65-110); Potassium 4.1 mmol/L (3.4-5.0); Sodium 137 mmol/L (137-145)
[2021-07-08] MEDS: LORazepam INJ (*CRX) 2 MG/ML VIAL 0.5 MG IV PUSH (16:38)
[2021-07-08 20:34] LABS: Partial Thromboplastin Time 83.8 SECONDS (22.3-36.8)
[2021-07-08] MEDS: WARFARIN (*PBKC) 5 MG TABLET PO (21:32)
[2021-07-09] VITALS: BP 118/76; PULSE 69; RESP 20; TEMP 36.4; O2SAT 96
[2021-07-09] MEDS: HEPARIN SOD/D5W 100 UNITS/ML 25,000 UNITS/250 ML BAG 17 UNITS IV CONT ×2 (03:11→13:13)
[2021-07-09 03:19] LABS: Basophils Percent Auto 0.1 % (0.2-1.2); Eosinophils Percent Auto 0.3 % (0-4.4); Hematocrit 33.5 % (42.0-52.0); Hemoglobin 11.1 g/dL (14.0-18.0); Immature Granulocyte Absolute 0.06 K/mm3 (0.00-0.031); Immature Granulocyte Percent A 0.8 % (0-0.5); Lymphocytes Absolute Auto 1.96 K/mm3 (0.9-3.2); Lymphocytes Percent Auto 24.5 % (18.3-44.2); Mean Corpuscular HGB Conc 33.1 g/dl (32-36); Mean Corpuscular Hemoglobin 30.9 pg (26-34); Mean Corpuscular Volume 93.3 fl (80-100); Monocytes Absolute Auto 0.9 K/mm3 (0.1-0.6); Monocytes Percent Auto 11.8 % (2.6-8.5); Neutrophils Percent Auto 62.5 % (45.5-73.1); Platelet Count Result 362 k/mm3 (150-375); Red Blood Count 3.59 M/mm3 (4.6-6.20); Red Cell Distribution Width 11.7 % (11.5-14.5)
[2021-07-09 03:33] LABS: Alanine Aminotransferase 28 U/L (4-50); Albumin Level 3.1 g/dL (3.5-5.1); Alkaline Phosphatase 57 U/L (38-126); Anion Gap 6 mmol/L (8-16); Aspartate Amino Transferase 38 U/L (17-59); Bilirubin,Total 0.2 mg/dL (0.2-1.3); Blood Urea Nitrogen 22 mg/dL (9-20); Calcium 8.6 mg/dL (8.4-10.2); Carbon Dioxide 25 mmol/L (22-30); Chloride 106 mmol/L (98-107); Estimated CRCL calculation 94 ml/min; Estimated Glomerular Filt Rate > 60; Glucose 114 mg/dL (65-110); Potassium 3.3 mmol/L (3.4-5.0); Sodium 137 mmol/L (137-145)
[2021-07-09 03:41] LABS: INR 1.1; Prothrombin Time 13.7 Seconds (11.1-14.7)
[2021-07-09 03:43] LABS: Partial Thromboplastin Time 97.7 SECONDS (22.3-36.8)
[2021-07-09 04:00] VITALS: BP 147/96; PULSE 78; RESP 18; TEMP 36.2; O2SAT 97
[2021-07-09] MEDS: DEXAMETHASONE SOD PHOS INJ 4 MG/ML VIAL 6 MG IV PUSH (08:10)
[2021-07-09 08:19] VITALS: BP 147/94; PULSE 70; RESP 14; TEMP 36.6; O2SAT 94
--- NOTE | 2021-07-09 08:28 | P.PNIM_ITS ---
Progress Note: A&P Assessment and Plan (1) Acute respiratory failure with hypoxia: Code(s): J96.01 - Acute respiratory failure with hypoxia Status: Acute Assessment and Plan: * Secondary to COVID-19 and pulmonary embolism * CTA did find a pulmonary artery bilateral airspace consolidation * D.Dimer 0.6 07/07/21 * COVID positive 06/27/2021 * Continue Decadron and inhalers * SPO2 94% on RA * Heparin drip * transition to Coumadin 5mg PO * PT/INR 13.7/1.1 (2) Pneumonia due to COVID-19 virus: Code(s): U07.1 - COVID-19; J12.82 - Pneumonia due to coronavirus disease 2019 Status: Acute Assessment and Plan: * See above (3) Hypertension: Code(s): I10 - Essential (primary) hypertension Status: Acute Assessment and Plan: * Blood pressure this morning was 147/94 * Trend blood pressure * Adjust medications as needed * consider adding some lisinopril (4) Hyponatremia: Code(s): E87.1 - Hypo-osmolality and hyponatremia Status: Acute Assessment and Plan: * Sodium is 137 * Regular diet * Trend sodium (5) Dehydration: Code(s): E86.0 - Dehydration Status: Acute Assessment and Plan: * Sodium chloride bolus in the ED * Trend BUN and creatinine, 22/0.8 today * Monitor I&Os * Encourage p.o. intake (6) Pulmonary embolism: Qualifiers: Pulmonary embolism type: multiple subsegmental (without acute cor pulmo nale) Qualified Code(s): I26.94 - Multiple subsegmental pulmonary emboli without acute cor pulmonale Code(s): I26.99 - Other pulmonary embolism without acute cor pulmonale Status: Acute Assessment and Plan: * CT showed positive for PE * Heparin drip * Supplemental oxygen * SCDs * venous Dopplers negative for DVT * Echo 60-65% EF * Due to insurance and status will bridge to warfarin * Warfarin 5mg PO started 07/08/21 * PT/INR 13.7/1.1 (7) Leukocytopenia: Code(s): D72.819 - Decreased white blood cell count, unspecified Status: Acute Assessment and Plan: * WBC 2.6, trending up and today is 8.0 * ANC calc 2158 * Normal findings * Could be from Covid infection * trend labs (8) Anxiety and depression: Code(s): F41.9 - Anxiety disorder, unspecified; F32.9 - Major depressive disorder, single episode, unspecified Status: Acute Assessment and Plan: * This patient would benefit from a psych consult * Xanax 0.125mg PO ordered * Would like to start him on something but concerned that he will not be able to keep up with it post discharge * Care coordination consult * chestnut resources given * Ativan 0.5mg IV once Subjective Date/time seen: 07/09/21 08:28 Interval history: 07/08/21 11:30 Patient is a 51 year old male here for treatment of a PE. He stated that he is feeling better. He denied chest pain. However, he could not tell me if he was short of breath since he has not gotten up yet. He really wants to take a shower. I did talk to him about the medications and needing to transition him to an oral medication. I explained that the medications that do not need lab work are very expensive and that he would have to keep up with them. The option of warfarin was also presented. I asked him if he would be able to keep up with the lab work. He said that he could. I think
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
[2021-07-09] MEDS: ALBUTEROL SULFATE (*SP) INHALER 2 PUFF INHALATION ×4 (09:08→21:12)
[2021-07-09] MEDS: POTASSIUM CHLORIDE 20 MEQ TABLET 40 MEQ PO (09:39)
[2021-07-09 12:06] VITALS: BP 123/76; PULSE 80; RESP 12; TEMP 36.8; O2SAT 94
[2021-07-09] MEDS: ALPRAZolam (*CRX) 0.125 MG TABLET PO ×2 (13:12→22:05)
--- NOTE | 2021-07-09 15:58 | PCPTNOTE ---
Attempted to see patient for physical therapy treatment, patient declined stating no not right now .
[2021-07-09] MEDS: WARFARIN (*PBKC) 5 MG TABLET PO (16:13)
[2021-07-09 16:18] VITALS: BP 120/76; PULSE 79; RESP 14; TEMP 36.7; O2SAT 94
[2021-07-09 20:00] VITALS: BP 131/86; PULSE 75; RESP 18; TEMP 36.4; O2SAT 95
[2021-07-10] VITALS: BP 136/88; PULSE 68; RESP 18; TEMP 36.5; O2SAT 96
[2021-07-10 04:00] VITALS: BP 150/90; PULSE 67; RESP 18; TEMP 36.4; O2SAT 97
[2021-07-10] MEDS: HEPARIN SOD/D5W 100 UNITS/ML 25,000 UNITS/250 ML BAG 17 UNITS IV CONT (04:31)
[2021-07-10 06:36] LABS: INR 1.3; Prothrombin Time 16.4 Seconds (11.1-14.7)
[2021-07-10 06:38] LABS: Alanine Aminotransferase 43 U/L (4-50); Albumin Level 3.2 g/dL (3.5-5.1); Alkaline Phosphatase 72 U/L (38-126); Anion Gap 10 mmol/L (8-16); Aspartate Amino Transferase 61 U/L (17-59); Bilirubin,Total 0.1 mg/dL (0.2-1.3); Blood Urea Nitrogen 19 mg/dL (9-20); Calcium 8.7 mg/dL (8.4-10.2); Carbon Dioxide 24 mmol/L (22-30); Chloride 105 mmol/L (98-107); Estimated CRCL calculation 94 ml/min; Estimated Glomerular Filt Rate > 60; Glucose 102 mg/dL (65-110); Magnesium 1.9 mg/dL (1.6-2.3); Partial Thromboplastin Time 69.2 SECONDS (22.3-36.8); Potassium 3.6 mmol/L (3.4-5.0); Sodium 139 mmol/L (137-145)
[2021-07-10 06:40] LABS: Basophils Percent Auto 0.3 % (0.2-1.2); Eosinophils Absolute Auto 0.1 K/mm3 (0-0.3); Eosinophils Percent Auto 0.8 % (0-4.4); Hematocrit 35.4 % (42.0-52.0); Hemoglobin 11.5 g/dL (14.0-18.0); Immature Granulocyte Absolute 0.15 K/mm3 (0.00-0.031); Immature Granulocyte Percent A 1.6 % (0-0.5); Lymphocytes Absolute Auto 2.41 K/mm3 (0.9-3.2); Lymphocytes Percent Auto 25.9 % (18.3-44.2); Mean Corpuscular HGB Conc 32.5 g/dl (32-36); Mean Corpuscular Hemoglobin 30.5 pg (26-34); Mean Corpuscular Volume 93.9 fl (80-100); Mean Platelet Volume 10.5 fl (7.4-10.4); Monocytes Percent Auto 10.2 % (2.6-8.5); Neutrophils Absolute Auto 5.7 K/mm3 (1.3-6.7); Neutrophils Percent Auto 61.2 % (45.5-73.1); Platelet Count Result 414 k/mm3 (150-375); Red Blood Count 3.77 M/mm3 (4.6-6.20); Red Cell Distribution Width 11.7 % (11.5-14.5); White Blood Count 9.3 K/mm3 (4.5-10.0)
[2021-07-10] MEDS: HEPARIN SODIUM 5,000 UNITS/ML VIAL 3000 UNITS IV PUSH (06:49)
[2021-07-10 08:00] VITALS: BP 158/95; PULSE 67; RESP 16; TEMP 36.6; O2SAT 95
[2021-07-10] MEDS: ALBUTEROL SULFATE (*SP) INHALER 2 PUFF INHALATION ×4 (08:28→21:10)
[2021-07-10] MEDS: DEXAMETHASONE SOD PHOS INJ 4 MG/ML VIAL 6 MG IV PUSH (08:29)
[2021-07-10 09:39] LABS: Procalcitonin 0.1 ng/mL
--- NOTE | 2021-07-10 11:19 | P.PNIM_ITS ---
Progress Note: A&P Assessment and Plan (1) Acute respiratory failure with hypoxia: Code(s): J96.01 - Acute respiratory failure with hypoxia Status: Acute Assessment and Plan: * Secondary to COVID-19 and pulmonary embolism * CTA did find a pulmonary artery bilateral airspace consolidation * D.Dimer 0.6 07/07/21 * COVID positive 06/27/2021 * Continue Decadron and inhalers * SPO2 95% on RA * Heparin drip * transition to Coumadin 5mg PO * PT/INR 16.4/1.3 (2) Pneumonia due to COVID-19 virus: Code(s): U07.1 - COVID-19; J12.82 - Pneumonia due to coronavirus disease 2019 Status: Acute Assessment and Plan: * See above (3) Hypertension: Code(s): I10 - Essential (primary) hypertension Status: Acute Assessment and Plan: * Blood pressure this morning was 158/95 * Trend blood pressure * Adjust medications as needed * start 5mg lisinopril for better blood pressure control (4) Hyponatremia: Code(s): E87.1 - Hypo-osmolality and hyponatremia Status: Acute Assessment and Plan: * Sodium is 139 * Regular diet * Trend sodium (5) Dehydration: Code(s): E86.0 - Dehydration Status: Acute Assessment and Plan: * Sodium chloride bolus in the ED * Trend BUN and creatinine, 19/0.8 today * Monitor I&Os * Encourage p.o. intake (6) Pulmonary embolism: Qualifiers: Pulmonary embolism type: multiple subsegmental (without acute cor pulmonale) Qualified Code(s): I26.94 - Multiple subsegmental pulmonary emboli without acute cor pulmonale Code(s): I26.99 - Other pulmonary embolism without acute cor pulmonale Status: Acute Assessment and Plan: * CT showed positive for PE * Heparin drip * Supplemental oxygen * SCDs * venous Dopplers negative for DVT * Echo 60-65% EF * Due to insurance and status will bridge to warfarin * Warfarin 5mg PO started 07/08/21 * PT/INR 16.4/1.3 (7) Leukocytopenia: Code(s): D72.819 - Decreased white blood cell count, unspecified Status: Acute Assessment and Plan: * WBC 2.6, trending up and today is 9.3 * ANC calc 2158 * Normal findings * Could be from Covid infection * trend labs (8) Anxiety and depression: Code(s): F41.9 - Anxiety disorder, unspecified; F32.9 - Major depressive disorder, single episode, unspecified Status: Acute Assessment and Plan: * This patient would benefit from a psych consult * Xanax 0.125mg TID PO ordered * Would like to start him on something but concerned that he will not be able to keep up with it post discharge * Care coordination consult * chestnut resources given Subjective Date/time seen: 07/10/21 11:19 Interval history: 07/08/21 11:30 Patient is a 51 year old male here for treatment of a PE. He stated that he is feeling better. He denied chest pain. However, he could not tell me if he was short of breath since he has not gotten up yet. He really wants to take a shower. I did talk to him about the medications and needing to transition him to an oral medication. I explained that the medications that do not need lab work are very expensive and that he would have to keep up with them. The option of warfarin was also presented. I asked him if he would be able to keep up with the lab work. He said that he could. I
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
[2021-07-10 12:00] VITALS: BP 132/84; PULSE 70; RESP 16; TEMP 36.1; O2SAT 95
[2021-07-10] MEDS: ALPRAZolam (*CRX) 0.125 MG TABLET PO ×2 (12:17→18:37)
[2021-07-10 13:12] LABS: Partial Thromboplastin Time > 200.0 SECONDS (22.3-36.8)
--- NOTE | 2021-07-10 13:59 | PCPTNOTE ---
Attempted to see pt at 1345 but pt declined stating he just received xanax and is very tired/groggy. Educated pt on benefits of therapy and provided encouragement, but pt continued to decline PT today. Will check back tomorrow
[2021-07-10] MEDS: lisinopriL 5 MG TABLET PO (14:35)
[2021-07-10] MEDS: WARFARIN (*PBKC) 5 MG TABLET PO (18:37)
[2021-07-10 19:29] LABS: Partial Thromboplastin Time 152.2 SECONDS (22.3-36.8)
[2021-07-10] MEDS: HEPARIN SOD/D5W 100 UNITS/ML 25,000 UNITS/250 ML BAG 15 UNITS IV CONT (20:47)
[2021-07-10 21:10] VITALS: O2SAT 95
[2021-07-10 22:00] VITALS: BP 102/56; PULSE 87; RESP 20; TEMP 36.9; O2SAT 93
[2021-07-11 02:12] LABS: Partial Thromboplastin Time 147.6 SECONDS (22.3-36.8)
[2021-07-11 06:00] VITALS: BP 145/95; PULSE 66; RESP 20; TEMP 36.8; O2SAT 94
[2021-07-11 06:18] LABS: Basophils Percent Auto 0.3 % (0.2-1.2); Eosinophils Absolute Auto 0.1 K/mm3 (0-0.3); Eosinophils Percent Auto 0.7 % (0-4.4); Hematocrit 34.3 % (42.0-52.0); Immature Granulocyte Percent A 2.5 % (0-0.5); Lymphocytes Absolute Auto 2.63 K/mm3 (0.9-3.2); Lymphocytes Percent Auto 22.3 % (18.3-44.2); Mean Corpuscular HGB Conc 32.1 g/dl (32-36); Mean Corpuscular Volume 93.5 fl (80-100); Mean Platelet Volume 10.2 fl (7.4-10.4); Monocytes Absolute Auto 1.2 K/mm3 (0.1-0.6); Monocytes Percent Auto 9.8 % (2.6-8.5); Neutrophils Absolute Auto 7.6 K/mm3 (1.3-6.7); Neutrophils Percent Auto 64.4 % (45.5-73.1); Platelet Count Result 438 k/mm3 (150-375); Red Blood Count 3.67 M/mm3 (4.6-6.20); Red Cell Distribution Width 11.7 % (11.5-14.5); White Blood Count 11.8 K/mm3 (4.5-10.0)
[2021-07-11 06:28] LABS: Partial Thromboplastin Time 80.4 SECONDS (22.3-36.8)
--- NOTE | 2021-07-11 06:34 | PC.NURSE ---
This patient's PTT was drawn with his daily labs and resulted at 0607. No action was taken as we are waiting for timed PTT results at 0920.
[2021-07-11 06:46] LABS: Alanine Aminotransferase 58 U/L (4-50); Alkaline Phosphatase 80 U/L (38-126); Anion Gap 7 mmol/L (8-16); Aspartate Amino Transferase 54 U/L (17-59); Bilirubin,Total 0.2 mg/dL (0.2-1.3); Blood Urea Nitrogen 19 mg/dL (9-20); Calcium 8.8 mg/dL (8.4-10.2); Carbon Dioxide 24 mmol/L (22-30); Chloride 107 mmol/L (98-107); Estimated CRCL calculation 94 ml/min; Estimated Glomerular Filt Rate > 60; Glucose 103 mg/dL (65-110); Potassium 3.8 mmol/L (3.4-5.0); Sodium 138 mmol/L (137-145)
[2021-07-11 08:11] LABS: INR 1.7; Prothrombin Time 19.4 Seconds (11.1-14.7)
[2021-07-11] MEDS: lisinopriL 5 MG TABLET PO (08:25)
[2021-07-11] MEDS: DEXAMETHASONE SOD PHOS INJ 4 MG/ML VIAL 6 MG IV PUSH (08:25)
[2021-07-11] MEDS: ALBUTEROL SULFATE (*SP) INHALER 2 PUFF INHALATION ×2 (08:55→11:33)
[2021-07-11 08:56] VITALS: PULSE 72; RESP 16
[2021-07-11 08:57] VITALS: PULSE 72; RESP 16; O2SAT 95
[2021-07-11 09:40] LABS: Partial Thromboplastin Time 97.1 SECONDS (22.3-36.8)
[2021-07-11] MEDS: ALPRAZolam (*CRX) 0.125 MG TABLET PO (12:02)
--- NOTE | 2021-07-11 12:35 | PM.DS ---
DS: Admitting Diagnosis Discharge Date date of discharge July 11, 2021 Admitting Diagnosis COVID-19, PE DS: Discharge Diagnosis Discharge Diagnosis (1) Acute respiratory failure with hypoxia: Code(s): J96.01 - Acute respiratory failure with hypoxia Status: Acute Assessment and Plan: Resolved -likely due to covid and PE (2) Pneumonia due to COVID-19 virus: Code(s): U07.1 - COVID-19; J12.82 - Pneumonia due to coronavirus disease 2019 Status: Acute Assessment and Plan: off o2 -improving (3) Hypertension: Code(s): I10 - Essential (primary) hypertension Status: Acute Assessment and Plan: last bp 145/95 -lisinopril started during stay (4) Hyponatremia: Code(s): E87.1 - Hypo-osmolality and hyponatremia Status: Acute Assessment and Plan: resolved, 138 at d/c (5) Dehydration: Code(s): E86.0 - Dehydration Status: Acute Assessment and Plan: resolved, likely due to COVID (6) Pulmonary embolism: Qualifiers: Pulmonary embolism type: multiple subsegmental (without acute cor pulmonale) Qualified Code(s): I26.94 - Multiple subsegmental pulmonary emboli without acute cor pulmonale Code(s): I26.99 - Other pulmonary embolism without acute cor pulmonale Status: Acute Assessment and Plan: Likely due to COVID -was on heparin drip and transitioned to lovenox + warfarin at d/c -inr 1.7 at d/c -i have asked facility to check daily INR and d/c lovenox when INR >2 for 2 days -pt given PCP # for follow up (7) Leukocytopenia: Code(s): D72.819 - Decreased white blood cell count, unspecified Status: Acute Assessment and Plan: resolved. Likely due to viral infx (8) Anxiety and depression: Code(s): F41.9 - Anxiety disorder, unspecified; F32.9 - Major depressive disorder, single episode, unspecified Status: Acute Assessment and Plan: Improving -chronic and stable -given resources for [facility] pcp DS: Summary Hospital Course Hospital Course: Date of service 07/11/2021 Patient is a 51-year-old male who presented emergency room for COVID and worsening shortness of breath. CBC shows white blood cell count 6.7, hemoglobin 11.9, hematocrit 37.0, platelets 241. BMP within normal limits with the exception of sodium 131 and BUN 24. CTA of the chest was done which showed small filling defects in the pulmonary arteries consistent with PE small thrombus burden with patchy airspace consolidation bilaterally consistent with pneumonia with mediastinal and hilar lymphadenopathy likely reactive. Patient was admitted hospital service and started on heparin drip. He was initiated on warfarin as well. He did require up to 2 L of oxygen at 1 point but was able to be weaned off the oxygen. Echocardiogram was done which shows no right heart failure, normal EF of 60 65%, and grade 1 diastolic dysfunction. No acute heart failure noted on exam. The patient is homeless and needed monitoring on the warfarin and he was accepted to [facility] in [place]. I have asked the facility to check daily INRs and continue the Lovenox and warfarin until INR is greater than 2 and then discontinue Lovenox after 2 days of it being at 2. I also gave the patient information about [facility] where he can follow-up with a primary care physician there as well as mental health services. I explained to him that he will need the Coumadin refilled and that [facility] can help him with this. He is agreeable. He has no thoughts of harming himself or others. He did have some hypertension during his stay and lisinopril was started. Overall, the patient was feeling well the day of discharge and not requiring any oxygen. He was educated about the worrisome signs and symptoms come back to emergency room for and was discharged stable condition. S
== END 2021-07-11 13:05 | DRG 137 ==
LOC: ANHED 20:57 → ANH3MEDSUR 07-06 08:19
PROVIDERS: Nurse Practitioner; Admitting Provider Internal Medicine; Emergency Provider Emergency Medicine; Visit Provider Physician Assistant
DX: U07.1 COVID-19 (principal); J12.82 Pneumonia due to coronavirus disease 2019; J96.01 Acute respiratory failure with hypoxia; I10 Essential (primary) hypertension; E87.1 Hypo-osmolality and hyponatremia; E86.0 Dehydration; I26.94 Multiple subsegmental thrombotic pulmonary emboli without acute cor pulmonale; D72.819 Decreased white blood cell count, unspecified; F32.9 Major depressive disorder, single episode, unspecified; F41.9 Anxiety disorder, unspecified; D64.9 Anemia, unspecified; R00.0 Tachycardia, unspecified; Z59.0 Homelessness
CPT/HCPCS: 36415; 71045; 71275; 80048; 80053; 80076; 82550; 82728; 83615; 83735; 83880; 84145; 84484; 85025; 85380; 85610; 85730; 86140; 93005; 93306; 93970; 94640; 96361; 96374; 96375; 97110; 97161; 97165; 97530; 99291; A9270; J1100; J1644; J2060; J2270; J2405; J7030; Q9967

== ENCOUNTER 2022-05-30 13:49 | Emergency (ER) | payer OTHER, SELFPAY ==
--- NOTE | ~2022-05-30 | CT_ITS ---
EXAMINATION: CTA chest PE protocol DATE: 05/30/2022 18:42 INDICATION: Dyspnea elevated d-dimer. Hx of PE TECHNIQUE: Computed tomography angiography (CTA) of the chest was performed with 100 mL Omnipaque-350 intravenous contrast timed to evaluate the pulmonary arteries. Coronal maximum intensity projection 3D-reconstructions were created by the technologist. The dose-length product (DLP) was 372.88 mGy-cm. Automated exposure control and iterative reconstruction technique were employed. COMPARISON: None. FINDINGS: Lung parenchyma and airways: Mild dependent atelectasis. Pleura: Unremarkable. Thoracic inlet, axillae and chest wall: Unremarkable. Thoracic aorta: Mild ectasia. Mediastinum: Normal. Heart and pericardium: Normal. Coronary artery calcifications: . Upper abdomen: No significant finding. Bones: No acute osseous finding. Pulmonary arteries: Study quality: Mild motion artifact. No pulmonary emboli detected. IMPRESSION: Mild motion artifact limitation, within that constraint no definite CT evidence of acute pulmonary em bolus. Reviewed, dictated and finalized at location K. IMPRESSION: Mild motion artifact limitation, within that constraint no definite CT evidence of acute pulmonary embolus.
--- NOTE | ~2022-05-30 | XR_ITS ---
EXAMINATION: XR chest 2V Exam Date/Time: 05/30/2022 14:10 CDT HISTORY: SOB HX OF PE X 1 YR. Comparison: 07/05/2021. RESULT: Lines, tubes, and devices: None. Lungs and pleura: Clear. Cardiomediastinal silhouette: Stable. Other: No acute osseous or upper abdominal finding. IMPRESSION: No acute cardiopulmonary process. Reviewed, dictated and finalized at location K.
[2022-05-30 13:56] VITALS: BP 148/96; PULSE 106; RESP 18; TEMP 36.6; O2SAT 99
--- NOTE | 2022-05-30 13:59 | ECG_ITS ---
Measurements Intervals [place] Rate: 110 P: 54 MI: 120 QRS: 14 QRSD: 87 T: 50 QT: 321 QTc: 435 Interpretive Statements SINUS TACHYCARDIA BASELINE ARTIFACT POSSIBLE INFERIOR MYOCARDIAL INFARCTION , PROBABLY OLD ABNORMAL ECG COMPARED TO ECG 07/05/2021 18:30:22 NO SIGNIFICANT CHANGES Electronically Signed On 05-30-2022 16:09:52 CDT by Yuri Chadwick M.D.
[2022-05-30 14:24] LABS: Basophils Absolute Auto 0.1 K/mm3 (0.0-0.1); Basophils Percent Auto 0.5 % (0.2-1.2); Eosinophils Absolute Auto 0.3 K/mm3 (0-0.3); Eosinophils Percent Auto 3.3 % (0-4.4); Hematocrit 43.4 % (42.0-52.0); Hemoglobin 14.3 g/dL (14.0-18.0); Immature Granulocyte Absolute 0.04 K/mm3 (0.00-0.031); Immature Granulocyte Percent A 0.4 % (0-0.5); Lymphocytes Absolute Auto 2.34 K/mm3 (0.9-3.2); Lymphocytes Percent Auto 24.5 % (18.3-44.2); Mean Corpuscular HGB Conc 32.9 g/dl (32-36); Mean Corpuscular Hemoglobin 30.8 pg (26-34); Mean Corpuscular Volume 93.3 fl (80-100); Mean Platelet Volume 9.4 fl (7.4-10.4); Monocytes Percent Auto 10.9 % (2.6-8.5); Neutrophils Absolute Auto 5.8 K/mm3 (1.3-6.7); Neutrophils Percent Auto 60.4 % (45.5-73.1); Platelet Count Result 374 k/mm3 (150-375); Red Blood Count 4.65 M/mm3 (4.6-6.20); Red Cell Distribution Width 12.7 % (11.5-14.5); White Blood Count 9.6 K/mm3 (4.5-10.0)
[2022-05-30 14:33] LABS: Alanine Aminotransferase 28 U/L (6-50); Albumin Level 4.9 g/dL (3.5-5.1); Alkaline Phosphatase 110 U/L (38-126); Anion Gap 14 mmol/L (8-16); Aspartate Amino Transferase 36 U/L (17-59); Bilirubin,Total 0.6 mg/dL (0.2-1.3); Blood Urea Nitrogen 44 mg/dL (9-20); Calcium 9.5 mg/dL (8.4-10.2); Carbon Dioxide 24 mmol/L (22-30); Chloride 100 mmol/L (98-107); Estimated Glomerular Filt Rate 40; Glucose 132 mg/dL (65-110); Potassium 4.1 mmol/L (3.4-5.0); Sodium 138 mmol/L (137-145)
[2022-05-30 14:48] LABS: D Dimer 0.94 ug/mL (<0.48)
[2022-05-30 16:18] VITALS: BP 145/95; PULSE 102; TEMP 37.1; O2SAT 98
[2022-05-30 18:26] VITALS: BP 136/90; PULSE 101; RESP 18; O2SAT 100
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
[2022-05-30 19:24] VITALS: BP 138/90; PULSE 92; RESP 18; O2SAT 98
== END 2022-05-30 19:59 | disposition home or self-care (01) ==
PROVIDERS: Emergency Medicine; Emergency Provider Emergency Medicine
DX: R06.00 Dyspnea, unspecified (principal); I10 Essential (primary) hypertension; Z86.711 Personal history of pulmonary embolism; Z86.16 Personal history of COVID-19
CPT/HCPCS: 36415; 71046; 71275; 80053; 85025; 85380; 93005; 99284; Q9967

== ENCOUNTER 2024-12-27 20:30 | Emergency (ER) | payer OTHER, SELFPAY ==
[2024-12-27 20:34] VITALS: BP 189/101; PULSE 117; RESP 18; TEMP 37.3; O2SAT 97
--- NOTE | 2024-12-27 22:55 | ED.EAR ---
HPI - Ear Problem General Chief complaint: Ear Stated complaint: L ear infection Time Seen by Provider: 12/27/24 22:19 Source: patient Mode of arrival: ambulatory Limitations: no limitations History of Present Illness HPI Narrative: This is a 54-year-old male that presents emergency department for left ear pain. Ongoing over the last couple of days. Reports drainage from the ear. Denies fevers. Related Data Allergies Allergy/AdvReac Type Severity Reaction Status Date / Time No Known Allergies Allergy Verified 12/27/24 20:30 Review of Systems Review of Systems: CONSTITUTIONAL: Denies fever ENT: Reports otalgia. All systems reviewed & are unremarkable except as noted in HPI and below PMFSH Past Medical History Medical History Hypertension Pulmonary embolism Social History Social History Smoking status: Never smoker Alcohol intake: never Substance use: never Living arrangements: with friend(s) Occupation/Education: unemployed Spiritual care concerns: No Exam Narrative: GENERAL: Well-appearing, well-nourished, and in no acute distress. HEAD: Normocephalic, atraumatic. EYES: EOMI. ENT: Nares clear, no rhinorrhea or epistaxis. Mucous membranes moist. Oropharynx without tonsillar hypertrophy exudate or other lesions. Right TMs pearly galdamez non-bulging. Right external auditory canal normal. Left external auditory canal with edema, abnormal drainage NECK: Supple. No adenopathy or masses. CHEST: No respiratory distress HEART: Regular rate EXTREMITIES: Normal range of motion. No edema. SKIN: Warm, dry, no rash. NEURO: No focal deficits. Alert and oriented x3. PSYCH: Normal mood and affect Course Course Emergency Course: patient agrees with plan of care Vital Signs Vital signs: Vital Signs Temperature 99.1 F 12/27/24 20:34 Pulse Rate 117 H 12/27/24 20:34 Respiratory Rate 18 12/27/24 20:34 Blood Pressure 189/101 H 12/27/24 20:34 Pulse Oximetry 97 12/27/24 20:34 Temperature 99.1 F 12/27/24 20:34 Pulse Rate 117 H 12/27/24 20:34 Respiratory Rate 18 12/27/24 20:34 Blood Pressure 189/101 H 12/27/24 20:34 Pulse Oximetry 97 12/27/24 20:34 Medical Decision Making MDM Narrative Medical decision making narrative: patient presents to the ER for left ear pain and drainage. Exam consistent with otitis externa. Will be started on topical antibiotics Differential Diagnosis Differential Diagnosis: otitis externa, otitis media Vital Signs Vital Signs: Vital Signs Temperature 99.1 F 12/27/24 20:34 Pulse Rate 117 H 12/27/24 20:34 Respiratory Rate 18 12/27/24 20:34 Blood Pressure 189/101 H 12/27/24 20:34 Pulse Oximetry 97 12/27/24 20:34 Temperature 99.1 F 12/27/24 20:34 Pulse Rate 117 H 12/27/24 20:34 Respiratory Rate 18 12/27/24 20:34 Blood Pressure 189/101 H 12/27/24 20:34 Pulse Oximetry 97 12/27/24 20:34 Critical Care Time Critical Care Time Critical Care Time: No Discharge Plan Discharge Clinical Impression: Otitis externa Qualifiers: Otitis externa type: unspecified type Chronicity: acute Laterality: left Qualified Code(s): H60.502 - Unspecified acute noninfective otitis externa, left ear Patient Disposition: Home, Self-Care Condition: Stable Instructions: Antibiotic Form, Swimmer's Ear (ED) Additional Instructions: Return to the emergency department for worsening symptoms, or any other concerns Remain well-hydrated, get plenty of rest. Take Tylenol or Motrin [id number] for pain as needed. 3 drops in your left ear twice daily for one week Follow up with primary care doctor Patient Language: [place] Prescriptions: No Action enoxaparin [Lovenox] 80 mg/0.8 mL syringe 80 mg subcut Q12H Qty: 4 0RF Rx Instructions: stop once INR is >2 lisinopril 5 mg Tablet 5 mg PO QAM Qty: 30 0RF warfarin 4 mg tablet 4 mg PO DAILY Qty: 10 0RF Follow-up/Referrals: UNKNOWN,DOCTOR [Primary Care Provider] -
[2024-12-27] MEDS: CIPROFLOXACIN HC OTIC 10 ML 3 DROP LEFT EAR (22:57)
[2024-12-27] MEDS: IBUPROFEN 600 MG TABLET PO (22:57)
--- NOTE | 2024-12-27 23:01 | PC.NURSE ---
Assumed care of pt from BHAVESH Maya at this time.
[2024-12-27 23:13] VITALS: BP 178/88; PULSE 107; RESP 17; TEMP 37.2; O2SAT 99
== END 2024-12-27 23:15 | disposition home or self-care (01) ==
PROVIDERS: Emergency Provider Physician Assistant
DX: H60.502 Unspecified acute noninfective otitis externa, left ear (principal); I10 Essential (primary) hypertension; Z86.711 Personal history of pulmonary embolism
CPT/HCPCS: 99283; A9270

== ENCOUNTER 2024-12-29 16:07 | Emergency (ER) | payer OTHER, SELFPAY ==
[2024-12-29] VITALS (40 sets, daily range): BP systolic 58–233; BP diastolic 24–161; PULSE 72–218; RESP 11–101; TEMP 38.1–39.6; O2SAT 79–99
--- NOTE | ~2024-12-29 | XR_ITS ---
CHEST RADIOGRAPH CLINICAL HISTORY: altered loc . COMPARISON: 05/30/2022 TECHNIQUE: Single portable view of the chest. FINDINGS Endotracheal tube is identified with its tip projecting 5.3 cm above the base of the frankie for which advancement of approximately 2-3 cm is suggested for optimal radiographic placement. Nasogastric tube is also noted, with its tip projecting over the left upper quadrant, presumably with in the stomach. The remainder of the cardiomediastinal silhouette is otherwise unremarkable. The lungs are clear. Visualized osseous structures and soft tissues are unremarkable. IMPRESSION: Nasogastric tube in good position. Endotracheal tube advancement of approximately 2 to 3 cm is recommended for optimal radiographic plac ement. The lungs are clear. Reviewed, dictated and finalized at location A. MAKER IMPRESSION: Nasogastric tube in good position. Endotracheal tube advancement of approximately 2 to 3 cm is recommended for opt imal radiographic placement. The lungs are clear.
--- NOTE | ~2024-12-29 | CT_ITS ---
History: Headache and altered mental status PROCEDURE: CT head without contrast. COMPARISON: None TECHNIQUE: Axial imaging of the head performed from the skull base to the vertex without IV contrast. Sagittal a nd coronal reformations obtained. Examination is limited by motion artifact DLP: 1513 mGy-cm FINDINGS: The ventricles are age advanced in size. There is no large mass, mass effect or midline shift. There is no large extra-axial fluid collection or large intracranial hemorrhage. Nasal trumpet in position. Visualized paranasal sinuses are clear. The mastoid air cells are well aerated. No acute displaced fractures within the overlying cranium. Impression: No large acute intracranial hemorrhage or suspicious mass effect. Reviewed, dictated and finalized at location A. [employer] Impression: No large acute intracranial hemorrhage or suspicious mass effect.
--- NOTE | ~2024-12-29 | XR_ITS ---
CHEST RADIOGRAPH CLINICAL HISTORY: altered loc . COMPARISON: 05/30/2022 TECHNIQUE: Portable view of the chest and upper abdomen. FINDINGS Endotracheal tube is identified with its tip projecting 5.3 cm above the base of the frankie for which advancement of approximately 2-3 cm is suggested for optimal radiographic placement. Nasogastric tube is also noted, with its tip projecting over the left upper quadrant, presumably with in the stomach. The remainder of the cardiomediastinal silhouette is otherwise unremarkable. The lungs are clear. Visualized osseous structures and soft tissues are unremarkable. IMPRESSION: Nasogastric tube in good position. Endotracheal tube advancement of approximately 2 to 3 cm is recommended for optimal radiographic plac ement. The lungs are clear. SBLOWER Reviewed, dictated and finalized at location A. IMPRESSION: Nasogastric tube in good position. Endotracheal tube advancement of approximately 2 to 3 cm is recommended for opt imal radiographic placement. The lungs are clear.
--- NOTE | 2024-12-29 16:19 | ECG_ITS ---
Test Date: 2024-12-29 18:06:11 Measurements Intervals [place] Rate: 130 P: 67 ND: 140 QRS: 23 QRSD: 97 T: 51 QT: 298 QTc: 438 Interpretive Statements SINUS TACHYCARDIA INCOMPLETE RIGHT BUNDLE BRANCH BLOCK [90+ ms QRS DURATION, TERMINAL R IN V1/V2, 40+ ms S IN I/aVL/V4/V5/V6] BASELINE ARTIFACT LIMITS INTERPRETATION No previous ECG available for comparison Electronically Signed On 12-30-2024 13:11:27 DIE MAINTENANCE TECHNICIAN by Nas Melton M.D.
--- NOTE | 2024-12-29 16:23 | ED_ITS ---
HPI - Altered Mental Status General Chief Complaint: Altered Mental Status <Namita Isaiah Oconnor III, DO - Last Filed: 12/29/24 19:18> Stated Complaint: ams <Namita Isaiah Oconnor III, DO - Last Filed: 12/29/24 19:18> Time Seen by Provider: 12/29/24 16:15 <Namita Isaiah Oconnor III, DO - Last Filed: 12/29/24 19:18> History of Present Illness HPI narrative: Pt presents with altered mental status. Pt seen 2 nights ago here for otitis media and discharged on meds. Per EMS pt acting strange at work today and was confused so EMS called. Pt apparently complained of a BERMEO earlier. < Namita Isaiah Oconnor III, DO - Last Filed: 12/29/24 19:18> Related Data Allergies/Adverse Reactions: Allergies Allergy/AdvReac Type Severity Reaction Status Date / Time No Known Allergies Allergy Verified 12/27/24 20:30 <Namita Isaiah Oconnor III, DO - Last Filed: 12/29/24 19:18> Review of Systems 2 Review of Systems: ROS unobtainable: Yes unobtainable due to mental status <Namita Isaiah Oconnor III, DO - Last Filed: 12/29/24 19:18> [facility] Past Medical History Medical History: Medical History Hypertension Pulmonary embolism <Namita Isaiah Oconnor III, DO - Last Filed: 12/29/24 19:18> Social History Social History: Social History Smoking status: Never smoker Alcohol intake: never Substance use: never Living arrangements: with friend(s) Occupation/Education: unemployed Spiritual care concerns: No <Namita Isaiah Oconnor III, DO - Last Filed: 12/29/24 19:18> Exam 2 Const: General: no acute distress <Namita Isaiah Oconnor III, DO - Last Filed: 12/29/24 19:18> Limitations: altered mental status <Namita Isaiah Oconnor III, DO - Last Filed: 12/29/24 19:18> HENMT: Mouth: Yes dry mucous membranes <Namita Isaiah Oconnor III, DO - Last Filed: 12/29/24 19:18> Resp: Effort & Inspection: normal respiratory effort <Namita Isaiah Oconnor III, DO - Last Filed: 12/29/24 19:18> Auscultation: clear to auscultation bilaterally <Namita Isaiah Oconnor III, DO - Last Filed: 12/29/24 19:18> Cardio: Rate: tachycardic <Namita Isaiah Oconnor III, DO - Last Filed: 12/29/24 19:18> Rhythm: regular rhythm <Namita Isaiah Oconnor III, DO - Last Filed: 12/29/24 19:18> GI: GI Palp: Yes Soft to palpation and Yes Tenderness to palpation present (GI) <Namita Isaiah Oconnor III, DO - Last Filed: 12/29/24 19:18> Auscultation: normal bowel sounds <Namita Isaiah Oconnor III, DO - Last Filed: 12/29/24 19:18> Skin: General skin exam: normal color <Namita Isaiah Oconnor III, DO - Last Filed: 12/29/24 19:18> Wounds: no wounds <Namita Isaiah Oconnor III, DO - Last Filed: 12/29/24 19:18> Neuro: Other: pt answers some questions but is confused and doesn't answer others. <Namita Isaiah Oconnor III, DO - Last Filed: 12/29/24 19:18> Extrem: General: normal to inspection and no clubbing, cyanosis or edema < Namita Isaiah Oconnor III, DO - Last Filed: 12/29/24 19:18> Course Vital Signs Vital signs: Vital Signs Pulse Rate 136 H 12/29/24 16:16 Temperature 38.2 C H 12/30/24 01:36 Pulse Rate 106 H 12/30/24 02:18 Respiratory Rate 16 12/30/24 02:18 Blood Pressure 84/59 L 12/30/24 02:18 Pulse Oximetry 98 12/30/24 02:18 Oxygen Delivery Mechanical Ventilation 12/30/24 00:14 Fraction of Inspired Oxygen 100 12/30/24 00:14 <Namita Isaiah Oconnor III, DO - Last Filed: 12/29/24 19:18> Vital Signs Pulse Rate 136 H 12/29/24 16:16 Temperature 38.2 C H 12/30/24 01:36 Pulse Rate 106 H 12/30/24 02:18 Respiratory Rate 16 12/30/24 02:18 Blood Pressure 84/59 L 12/30/24 02:18 Pulse Oximetry 98 12/30/24 02:18 Oxygen Delivery Mechanical Ventilation 12/30/24 00:14 Fraction of Inspired Oxygen 100 12/30/24 00:14 <Luis A Pierson MD - Last Filed: 12/30/24 21:07> Procedures Central Line Placement Right Femoral: Central Line Date: 12/29/24 <Luis A Pierson MD - Last Filed: 12/30/24 21:07> Central Line Time: 22:48 <Luis A Pierson MD - Last Filed: 12/30/24 21:07> Performed Emergently - Given emergent patient condition, temporal constraints may have precluded informed consent.: Yes <Luis A Pierson MD - Last Filed: 12/30/24 21:07> Time Out Performed: No <Luis A Pierson MD - Last Filed: 12/30/24 21:07> Patient Placed on Monitor/Pulse Ox: Yes <Luis A Pierson MD - Last Filed: 12/30/24 21:07> Max. Sterile Barrier Technique: Caps, large sterile sheet and hand hygiene <Luis A Pierson MD - Last Filed: 12/30/24 21:07> Central Line Prep: 2% chlorhexidine scrub and sterile drapes applied <Luis A Pierson MD - Last Filed: 12/30/24 21:07> Technique: US-Guided <Luis A Pierson MD - Last Filed: 12/30/24 21:07> Local Anesthetic: none <Luis A Pierson MD - Last Filed: 12/30/24 21:07> Ultrasound Used for Placement: Yes <Luis A Pierson MD - Last Filed: 12/30/24 21:07> Central Line Lumen Inserted: triple <Luis A Pierson MD - Last Filed: 12/30/24 21:07> Post Procedure: sutured in place, good blood return, all ports aspirated, flushed, capped and sterile dressing applied <Luis A Pierson MD - Last Filed: 12/30/24 21:07> Patient Tolerated Procedure: well <Luis A Pierson MD - Last Filed: 12/30/24 21:07> Complications: none <Luis A Piersno MD - Last Filed: 12/30/24 21:07> Intubation Intubation #1: Intubation Date: 12/29/24 <Luis A Pierson MD - Last Filed: 12/30/24 21:07> Intubation Time: 19:44 <Luis A Pierson MD - Last Filed: 12/30/24 21:07> Time out performed: Yes <Luis A Pierson MD - Last Filed: 12/30/24 21:07> sedative: Etomidate <Luis A Pierson MD - Last Filed: 12/30/24 21:07> Mg Given: 20 <Luis A Pierson MD - Last Filed: 12/30/24 21:07> paralytic: Succinylcholine <Luis A Pierson MD - Last Filed: 12/30/24 21:07> Mg Given: 100 <Luis A Pierson MD - Last Filed: 12/30/24 21:07> Laryngoscope: Lew <Luis A Pierson MD - Last Filed: 12/30/24 21:07> Tube Size (cm): 7.5 <Luis A Pierson MD - Last Filed: 12/30/24 21:07> Method of Intubation: orotracheal <Luis A Pierson MD - Last Filed: 12/30/24 21:07> Number of Attempts: 1 <Luis A Pierson MD - Last Filed: 12/30/24 21:07> Tube Secured Depth (cm): 23 <Luis A Pierson MD - Last Filed: 12/30/24 21:07> Tube Secured Location: lips <Luis A Pierson MD - Last Filed: 12/30/24 21:07> Tube Placement Confirmation: visualized tube passing through cords, equal breath sounds bilaterally, no breath sounds over epigastrium and confirmation by capnometry < Luis A Pierson MD - Last Filed: 12/30/24 21:07> Patient Tolerated Procedure: well <Luis A Pierson MD - Last Filed: 12/30/24 21:07> Intubation Complications: none <Luis A Pierson MD - Last Filed: 12/30/24 21:07> MDM - Altered Mental Status MDM Narrative Medical decision making narrative: Pt confused with AMS. Pt seen 2 days ago with OM. will do septic work up and get CT head. pt septic with wbc 31k lactic acid 4, pt given 30 mg/kg fluid bolus and cefipime. CT read as negative will add vancomycin. Pt had potentila seizure with right arm contracted then post ictal afterward. Pt given ativan prior to CT so has been given meds for seizure. will turn over to Dr Pierson at 1900. potentially intubating for airwar protection. <Namita Oconnor III, - Last Filed: 12/29/24 19:18> Pt confused with AMS. Pt seen 2 days ago with OM. will do septic work up and get CT head. pt septic with wbc 31k lactic acid 4, pt given 30 mg/kg fluid bolus and cefipime. CT read as negative will add vancomycin. Pt had potentila seizure with right arm contracted then post ictal afterward. Pt given ativan prior to CT so has been given meds for seizure. will turn over to Dr Pierson at 1900. potentially intubating for airway protection. Patient was signed out pain transfer to a another facility. Patient had a reduction in his blood pressure and that became PE a rhyth. ACLS was initiated. The patient had return of spontaneous circulation after receiving IV epinephrine a triple-lumen central line was placed after the central line was placed patient started to have a slower heart rate ultimately losing a blood pressure ACLS was re-initiated at this point vasopressor of agent support was started after the patient had return of spontaneous circulation started initially on Levophed then the Levophed was maxed out the patient had a no other cardiac arrest IV epinephrine was added after return of spontaneous circulation the patient then had a another cardiac arrest which then responded shortly the patient was maxed out on Levophed [place]-Synephrine and epinephrine. The patient's employer your who is the only contact me after the patient was contacted who was aware of the patient's grave situation he reported that the patient does not have any known family that both of his parents are . <Luis A Pierson MD - Last Filed: 12/30/24 21:07> Lab Data Result diagrams: 12/29/24 16:40 12/29/24 16:40 <Namita Oconnor III, DO - Last Filed: 12/29/24 19:18> Labs: Lab Results 12/29/24 12/29/24 12/29/24 Range/Units 16:40 18:16 18:43 WBC 30.1 H (4.5-10.0) K/mm3 RBC 4.92 (4.6-6.20) M/mm3 Hgb 15.1 (14.0-18.0) g/dL Hct 46.1 (42.0-52.0) % MCV 93.7 (80-100) fl MCH 30.7 (26-34) pg MCHC 32.8 (32-36) g/dl RDW 12.8 (11.5-14.5) % Plt Count 311 (150-375) k/mm3 MPV 10.1 (7.4-10.4) fl Immature Gran % (Auto) 1.1 H (0-0.5) % Neut % (Auto) 87.6 H (45.5-73.1) % Lymph % (Auto) 1.8 L (18.3-44.2) % [place] % (Auto) 9.3 H (2.6-8.5) % Eos % (Auto) 0.0 (0-4.4) % Baso % (Auto) 0.2 (0.2-1.2) % Lymph # (Auto) 0.53 L (0.9-3.2) K/mm3 [place] # (Auto) 2.8 H (0.1-0.6) K/mm3 Eos # (Auto) 0.0 (0-0.3) K/mm3 Baso # (Auto) 0.1 (0.0-0.1) K/mm3 Abs Immat Gran (auto) 0.32 H (0.00-0.031) K/mm3 Absolute Neuts (auto) 26.4 H (1.3-6.7) K/mm3 Absolute Nucleated RBC 0.000 (0.0-0.012) K/mm3 Nucleated RBC % 0.0 (0.0-0.2) % PT 13.7 (11.1-14.7) Seconds INR 1.0 APTT 26.0 (22.3-36.8) Seconds Minute Volume Vent Mode Tidal Volume ml PEEP cmH2O Peak Inspir Pressure Pressure Support Sodium 136 L (137-145) mmol/L Potassium 3.9 (3.4-5.0) mmol/L Chloride 95 L (98-107) mmol/L Carbon Dioxide 25 (22-30) mmol/L Anion Gap 16 H (4-12) mmol/L BUN 21 H D (9-20) mg/dL Creatinine 0.93 (0.7-1.3) mg/dL Estim Creat Clear Calc Not Reportable Estimated GFR > 60 (59 - ) Glucose 214 H (65-110) mg/dL POC Capillary Glucose 166 H (65-105) mg/dl Lactic Acid 4.1 H* (0.7-2.0) mmol/L Calcium 10.3 H (8.4-10.2) mg/dL Total Bilirubin 0.9 (0.2-1.3) mg/dL AST 24 (17-59) U/L ALT 23 (6-50) U/L Alkaline Phosphatase 136 H (38-126) U/L Total Protein 10.0 H (6.3-8.2) g/dL Albumin 4.9 (3.5-5.1) g/dL Urine Color Dark yellow (Yellow) Urine Appearance Clear (Clear) Urine pH 6.0 (5.0-9.0) Ur Specific [place] 1.034 (1.001-1.035) Urine Protein 3+ H (Negative) mg/dL Urine Glucose (UA) Trace H (Negative) mg/dL Urine Ketones Trace H (Negative) mg/dL Ur Blood (Man) 2+ H (Negative) Urine Nitrate Negative (Negative) Urine Bilirubin Negative (Negative) Urine Urobilinogen 1.0 (<2.0) mg/dL Add Ur Microanalysis Reviewed Leukocyte Esterase Rfl Negative (Negative) ANAT/UL Urine RBC 6-10 H (0-2) /hpf Urine WBC 0-5 (0-3) /hpf Ur Squamous Epith Cells None seen (Few) /hpf Urine Bacteria None seen /hpf Urine Casts 11-20 Hyaline Casts Present (None) /lpf Urine Mucus Present /lpf Nasal MRSA (PCR) (NOT DETECTE) Urine Opiates Screen Negative (Negative) Urine Methadone Screen Negative (Negative) Ur Barbiturates Screen Negative (Negative) Ur Phencyclidine Scrn Negative (Negative) Ur Amphetamine Screen Positive A (Negative) U Benzodiazepines Scrn Negative (Negative) Urine Cocaine Screen Negative (Negative) U Cannabinoids Screen Negative (Negative) Influenza A (RT-PCR) Negative (Negative) Influenza B (RT-PCR) Negative (Negative) RSV (RT-PCR) Negative (Negative) SARS-CoV-2 RNA (RT-PCR) Negative (Negative) 12/29/24 12/29/24 12/30/24 Range/Units 19:35 20:07 01:44 WBC (4.5-10.0) K/mm3 RBC (4.6-6.20) M/mm3 Hgb (14.0-18.0) g/dL Hct (42.0-52.0) % MCV (80-100) fl MCH (26-34) pg MCHC (32-36) g/dl RDW (11.5-14.5) % Plt Count (150-375) k/mm3 MPV (7.4-10.4) fl Immature Gran % (Auto) (0-0.5) % Neut % (Auto) (45.5-73.1) % Lymph % (Auto) (18.3-44.2) % [place] % (Auto) (2.6-8.5) % Eos % (Auto) (0-4.4) % Baso % (Auto) (0.2-1.2) % Lymph # (Auto) (0.9-3.2) K/mm3 [place] # (Auto) (0.1-0.6) K/mm3 Eos # (Auto) (0-0.3) K/mm3 Baso # (Auto) (0.0-0.1) K/mm3 Abs Immat Gran (auto) (0.00-0.031) K/mm3 Absolute Neuts (auto) (1.3-6.7) K/mm3 Absolute Nucleated RBC (0.0-0.012) K/mm3 Nucleated RBC % (0.0-0.2) % PT (11.1-14.7) Seconds INR APTT (22.3-36.8) Seconds Minute Volume Not Reportable Vent Mode Cmv Tidal Volume 500 ml PEEP 5 cmH2O Peak Inspir Pressure Not Reportable Pressure Support Not Reportable Sodium (137-145) mmol/L Potassium (3.4-5.0) mmol/L Chloride (98-107) mmol/L Carbon Dioxide (22-30) mmol/L Anion Gap (4-12) mmol/L BUN (9-20) mg/dL Creatinine (0.7-1.3) mg/dL Estim Creat Clear Calc Estimated GFR (59 - ) Glucose (65-110) mg/dL POC Capillary Glucose (65-105) mg/dl Lactic Acid 1.8 (0.7-2.0) mmol/L Calcium (8.4-10.2) mg/dL Total Bilirubin (0.2-1.3) mg/dL AST (17-59) U/L ALT (6-50) U/L Alkaline Phosphatase (38-126) U/L Total Protein (6.3-8.2) g/dL Albumin (3.5-5.1) g/dL Urine Color (Yellow) Urine Appearance (Clear) Urine pH (5.0-9.0) Ur Specific [place] (1.001-1.035) Urine Protein (Negative) mg/dL Urine Glucose (UA) (Negative) mg/dL Urine Ketones (Negative) mg/dL Ur Blood (Man) (Negative) Urine Nitrate (Negative) Urine Bilirubin (Negative) Urine Urobilinogen (<2.0) mg/dL Add Ur Microanalysis Leukocyte Esterase Rfl (Negative) ANAT/UL Urine RBC (0-2) /hpf Urine WBC (0-3) /hpf Ur Squamous Epith Cells (Few) /hpf Urine Bacteria /hpf Urine Casts Hyaline Casts (None) /lpf Urine Mucus /lpf Nasal MRSA (PCR) Not detected (NOT DETECTE) Urine Opiates Screen (Negative) Urine Methadone Screen (Negative) Ur Barbiturates Screen (Negative) Ur Phencyclidine Scrn (Negative) Ur Amphetamine Screen (Negative) U Benzodiazepines Scrn (Negative) Urine Cocaine Screen (Negative) U Cannabinoids Screen (Negative) Influenza A (RT-PCR) (Negative) Influenza B (RT-PCR) (Negative) RSV (RT-PCR) (Negative) SARS-CoV-2 RNA (RT-PCR) (Negative) <Namita Oconnor III, DO - Last Filed: 12/29/24 19:18> Lab Results 12/29/24 12/29/24 12/29/24 Range/Units 16:40 18:16 18:43 WBC 30.1 H (4.5-10.0) K/mm3 RBC 4.92 (4.6-6.20) M/mm3 Hgb 15.1 (14.0-18.0) g/dL Hct 46.1 (42.0-52.0) % MCV 93.7 (80-100) fl MCH 30.7 (26-34) pg MCHC 32.8 (32-36) g/dl RDW 12.8 (11.5-14.5) % Plt Count 311 (150-375) k/mm3 MPV 10.1 (7.4-10.4) fl Immature Gran % (Auto) 1.1 H (0-0.5) % Neut % (Auto) 87.6 H (45.5-73.1) % Lymph % (Auto) 1.8 L (18.3-44.2) % [place] % (Auto) 9.3 H (2.6-8.5) % Eos % (Auto) 0.0 (0-4.4) % Baso % (Auto) 0.2 (0.2-1.2) % Lymph # (Auto) 0.53 L (0.9-3.2) K/mm3 [place] # (Auto) 2.8 H (0.1-0.6) K/mm3 Eos # (Auto) 0.0 (0-0.3) K/mm3 Baso # (Auto) 0.1 (0.0-0.1) K/mm3 Abs Immat Gran (auto) 0.32 H (0.00-0.031) K/mm3 Absolute Neuts (auto) 26.4 H (1.3-6.7) K/mm3 Absolute Nucleated RBC 0.000 (0.0-0.012) K/mm3 Nucleated RBC % 0.0 (0.0-0.2) % PT 13.7 (11.1-14.7) Seconds INR 1.0 APTT 26.0 (22.3-36.8) Seconds Minute Volume Vent Mode Tidal Volume ml PEEP cmH2O Peak Inspir Pressure Pressure Support Sodium 136 L (137-145) mmol/L Potassium 3.9 (3.4-5.0) mmol/L Chloride 95 L (98-107) mmol/L Carbon Dioxide 25 (22-30) mmol/L Anion Gap 16 H (4-12) mmol/L BUN 21 H D (9-20) mg/dL Creatinine 0.93 (0.7-1.3) mg/dL Estim Creat Clear Calc Not Reportable Estimated GFR > 60 (59 - ) Glucose 214 H (65-110) mg/dL POC Capillary Glucose 166 H (65-105) mg/dl Lactic Acid 4.1 H* (0.7-2.0) mmol/L Calcium 10.3 H (8.4-10.2) mg/dL Total Bilirubin 0.9 (0.2-1.3) mg/dL AST 24 (17-59) U/L ALT 23 (6-50) U/L Alkaline Phosphatase 136 H (38-126) U/L Total Protein 10.0 H (6.3-8.2) g/dL Albumin 4.9 (3.5-5.1) g/dL Urine Color Dark yellow (Yellow) Urine Appearance Clear (Clear) Urine pH 6.0 (5.0-9.0) Ur Specific [place] 1.034 (1.001-1.035) Urine Protein 3+ H (Negative) mg/dL Urine Glucose (UA) Trace H (Negative) mg/dL Urine Ketones Trace H (Negative) mg/dL Ur Blood (Man) 2+ H (Negative) Urine Nitrate Negative (Negative) Urine Bilirubin Negative (Negative) Urine Urobilinogen 1.0 (<2.0) mg/dL Add Ur Microanalysis Reviewed Leukocyte Esterase Rfl Negative (Negative) ANAT/UL Urine RBC 6-10 H (0-2) /hpf Urine WBC 0-5 (0-3) /hpf Ur Squamous Epith Cells None seen (Few) /hpf Urine Bacteria None seen /hpf Urine Casts 11-20 Hyaline Casts Present (None) /lpf Urine Mucus Present /lpf Nasal MRSA (PCR) (NOT DETECTE) Urine Opiates Screen Negative (Negative) Urine Methadone Screen Negative (Negative) Ur Barbiturates Screen Negative (Negative) Ur Phencyclidine Scrn Negative (Negative) Ur Amphetamine Screen Positive A (Negative) U Benzodiazepines Scrn Negative (Negative) Urine Cocaine Screen Negative (Negative) U Cannabinoids Screen Negative (Negative) Influenza A (RT-PCR) Negative (Negative) Influenza B (RT-PCR) Negative (Negative) RSV (RT-PCR) Negative (Negative) SARS-CoV-2 RNA (RT-PCR) Negative (Negative) 12/29/24 12/29/24 12/30/24 Range/Units 19:35 20:07 01:44 WBC (4.5-10.0) K/mm3 RBC (4.6-6.20) M/mm3 Hgb (14.0-18.0) g/dL Hct (42.0-52.0) % MCV (80-100) fl MCH (26-34) pg MCHC (32-36) g/dl RDW (11.5-14.5) % Plt Count (150-375) k/mm3 MPV (7.4-10.4) fl Immature Gran % (Auto) (0-0.5) % Neut % (Auto) (45.5-73.1) % Lymph % (Auto) (18.3-44.2) % [place] % (Auto) (2.6-8.5) % Eos % (Auto) (0-4.4) % Baso % (Auto) (0.2-1.2) % Lymph # (Auto) (0.9-3.2) K/mm3 [place] # (Auto) (0.1-0.6) K/mm3 Eos # (Auto) (0-0.3) K/mm3 Baso # (Auto) (0.0-0.1) K/mm3 Abs Immat Gran (auto) (0.00-0.031) K/mm3 Absolute Neuts (auto) (1.3-6.7) K/mm3 Absolute Nucleated RBC (0.0-0.012) K/mm3 Nucleated RBC % (0.0-0.2) % PT (11.1-14.7) Seconds INR APTT (22.3-36.8) Seconds Minute Volume Not Reportable Vent Mode Cmv Tidal Volume 500 ml PEEP 5 cmH2O Peak Inspir Pressure Not Reportable Pressure Support Not Reportable Sodium (137-145) mmol/L Potassium (3.4-5.0) mmol/L Chloride (98-107) mmol/L Carbon Dioxide (22-30) mmol/L Anion Gap (4-12) mmol/L BUN (9-20) mg/dL Creatinine (0.7-1.3) mg/dL Estim Creat Clear Calc Estimated GFR (59 - ) Glucose (65-110) mg/dL POC Capillary Glucose (65-105) mg/dl Lactic Acid 1.8 (0.7-2.0) mmol/L Calcium (8.4-10.2) mg/dL Total Bilirubin (0.2-1.3) mg/dL AST (17-59) U/L ALT (6-50) U/L Alkaline Phosphatase (38-126) U/L Total Protein (6.3-8.2) g/dL Albumin (3.5-5.1) g/dL Urine Color (Yellow) Urine Appearance (Clear) Urine pH (5.0-9.0) Ur Specific [place] (1.001-1.035) Urine Protein (Negative) mg/dL Urine Glucose (UA) (Negative) mg/dL Urine Ketones (Negative) mg/dL Ur Blood (Man) (Negative) Urine Nitrate (Negative) Urine Bilirubin (Negative) Urine Urobilinogen (<2.0) mg/dL Add Ur Microanalysis Leukocyte Esterase Rfl (Negative) ANAT/UL Urine RBC (0-2) /hpf Urine WBC (0-3) /hpf Ur Squamous Epith Cells (Few) /hpf Urine Bacteria /hpf Urine Casts Hyaline Casts (None) /lpf Urine Mucus /lpf Nasal MRSA (PCR) Not detected (NOT DETECTE) Urine Opiates Screen (Negative) Urine Methadone Screen (Negative) Ur Barbiturates Screen (Negative) Ur Phencyclidine Scrn (Negative) Ur Amphetamine Screen (Negative) U Benzodiazepines Scrn (Negative) Urine Cocaine Screen (Negative) U Cannabinoids Screen (Negative) Influenza A (RT-PCR) (Negative) Influenza B (RT-PCR) (Negative) RSV (RT-PCR) (Negative) SARS-CoV-2 RNA (RT-PCR) (Negative) <Luis A Pierson MD - Last Filed: 12/30/24 21:07> ABG Data ABG results: 12/30/24 01:44 Puncture Site Left radial ABG pH 7.188 L* ABG pCO2 52.3 H ABG pO2 274.3 H ABG PO2/FiO2 Ratio 2.74 ABG HCO3 19.4 L ABG O2 Saturation 99.5 ABG O2 Content 17.5 ABG Base Excess -8.9 A-a Gradient 386.4 Oxyhemoglobin 99.1 Total Hemoglobin 12.1 O2 Delivery Device Ventilator O2 Liters/Min Not Reportable Vent Rate 16 FiO2 100 <Namita Isaiah Oconnor III, DO - Last Filed: 12/29/24 19:18> 12/30/24 01:44 Puncture Site Left radial ABG pH 7.188 L* ABG pCO2 52.3 H ABG pO2 274.3 H ABG PO2/FiO2 Ratio 2.74 ABG HCO3 19.4 L ABG O2 Saturation 99.5 ABG O2 Content 17.5 ABG Base Excess -8.9 A-a Gradient 386.4 Oxyhemoglobin 99.1 Total Hemoglobin 12.1 O2 Delivery Device Ventilator O2 Liters/Min Not Reportable Vent Rate 16 FiO2 100 <Luis A Pierson MD - Last Filed: 12/30/24 21:07> Critical Care Time Critical Care Time Critical Care Time: Yes <Namita Isaiah Oconnor III, DO - Last Filed: 12/29/24 19:18> Total Critical Care Time: 45 <Namita Isaiah Oconnor III, DO - Last Filed: 12/29/24 19:18> 120 <Luis A Pierson MD - Last Filed: 12/30/24 21:07> Discharge Plan Discharge Clinical Impression: Sepsis, Altered mental status, Encephalopathy <Namita Isaiah Oconnor III, DO - Last Filed: 12/29/24 19:18> Patient Disposition: Acute Care Hospital <Namita Isaiah Oconnor III, DO - Last Filed: 12/29/24 19:18> Condition: Critical <Namita Isaiah Oconnor III, DO - Last Filed: 12/29/24 19:18> Patient Language: Macedonian <Namita Isaiah Oconnor III, DO - Last Filed: 12/29/24 19:18> Prescriptions: No Action enoxaparin [Lovenox] 80 mg/0.8 mL syringe 80 mg subcut Q12H Qty: 4 0RF Rx Instructions: stop once INR is >2 lisinopril 5 mg Tablet 5 mg PO QAM Qty: 30 0RF warfarin 4 mg tablet 4 mg PO DAILY Qty: 10 0RF <Namita Oconnor III DO - Last Filed: 12/29/24 19:18> Follow-up/Referrals: UNKNOWN,DOCTOR [Primary Care Provider] - <Namita Oconnor III DO - Last Filed: 12/29/24 19:18> Sign Out Sign Out Data: Patient Sign Out occurred on 12/29/24 at 19:41. Patient's care was discussed, and care was transferred from Namita Oconnor III, DO to Luis A Pierson MD. <Namita Oconnor III DO - Last Filed: 12/29/24 19:18>
[2024-12-29 16:47] LABS: Basophils Absolute Auto 0.1 K/mm3 (0.0-0.1); Basophils Percent Auto 0.2 % (0.2-1.2); Hematocrit 46.1 % (42.0-52.0); Hemoglobin 15.1 g/dL (14.0-18.0); Immature Granulocyte Absolute 0.32 K/mm3 (0.00-0.031); Immature Granulocyte Percent A 1.1 % (0-0.5); Lymphocytes Absolute Auto 0.53 K/mm3 (0.9-3.2); Lymphocytes Percent Auto 1.8 % (18.3-44.2); Mean Corpuscular HGB Conc 32.8 g/dl (32-36); Mean Corpuscular Hemoglobin 30.7 pg (26-34); Mean Corpuscular Volume 93.7 fl (80-100); Mean Platelet Volume 10.1 fl (7.4-10.4); Monocytes Absolute Auto 2.8 K/mm3 (0.1-0.6); Monocytes Percent Auto 9.3 % (2.6-8.5); Neutrophils Absolute Auto 26.4 K/mm3 (1.3-6.7); Neutrophils Percent Auto 87.6 % (45.5-73.1); Platelet Count Result 311 k/mm3 (150-375); Red Blood Count 4.92 M/mm3 (4.6-6.20); Red Cell Distribution Width 12.8 % (11.5-14.5); White Blood Count 30.1 K/mm3 (4.5-10.0)
[2024-12-29 16:57] LABS: Alanine Aminotransferase 23 U/L (6-50); Albumin Level 4.9 g/dL (3.5-5.1); Alkaline Phosphatase 136 U/L (38-126); Anion Gap 16 mmol/L (4-12); Aspartate Amino Transferase 24 U/L (17-59); Bilirubin,Total 0.9 mg/dL (0.2-1.3); Blood Urea Nitrogen 21 mg/dL (9-20); Calcium 10.3 mg/dL (8.4-10.2); Carbon Dioxide 25 mmol/L (22-30); Chloride 95 mmol/L (98-107); Estimated Glomerular Filt Rate > 60; Glucose 214 mg/dL (65-110); Potassium 3.9 mmol/L (3.4-5.0); Sodium 136 mmol/L (137-145)
[2024-12-29] MEDS: ACETAMINOPHEN 650 MG SUPPOSITORY RECTAL (16:57)
[2024-12-29 16:58] LABS: Prothrombin Time 13.7 Seconds (11.1-14.7)
[2024-12-29] MEDS: CEFEPIME 2 GM/NS 50 ML 2 GM/50 ML BAG IVPB (16:59)
[2024-12-29 17:00] LABS: Lactic Acid Reflex 4.1 mmol/L (0.7-2.0)
[2024-12-29 17:24] LABS: Influenza A QL RT-PCR Negative (Negative); Influenza B QL RT-PCR Negative (Negative); RSV RNA, RT-PCR Negative (Negative); SARS-CoV-2 RNA PCR Negative (Negative)
[2024-12-29] MEDS: SODIUM CHLORIDE 0.9% IV 1,000 ML 999 ML IV CONT ×2 (17:38)
[2024-12-29] MEDS: SODIUM CHLORIDE 0.9% IV 800 ML 999 ML IV CONT (17:39)
--- NOTE | 2024-12-29 18:18 | PC.NURSE ---
Patient now more calm and willing to lie on his back--not responsive to name at this time, making groaning noises. CT scan called to come for patient
[2024-12-29] MEDS: LORazepam INJ (*CRX) 2 MG/ML VIAL 1 MG IV PUSH (18:40)
[2024-12-29 18:46] LABS: Glucose Point of Care 166 mg/dl (65-105)
[2024-12-29 18:51] LABS: Barbiturate Screen Urine Negative (Negative); Benzodiazepines Screen Urine Negative (Negative)
--- NOTE | 2024-12-29 19:01 | PC.NURSE ---
1829 Dr Oconnor made aware that patient is making more/loud grunting groaning noises-it not responsive and right arm is pulling to body -seizure like, all other limbs moveable
--- NOTE | 2024-12-29 19:05 | PC.NURSE ---
patient noted to have no gag reflex, pupils not reactive to light
[2024-12-29 19:10] LABS: Cannabinoid Screen Urine Negative (Negative); Cocaine Screen Urine Negative (Negative); Methadone Screen Urine Negative (Negative); Opiate Screen Urine Negative (Negative); Phencyclidine Screen Urine Negative (Negative)
[2024-12-29] MEDS: ETOMIDATE 20 MG/10 ML AMPUL IV PUSH (19:17)
[2024-12-29] MEDS: SUCCINYLCHOLINE CHLORIDE 20 MG/ML 10 ML VIAL 100 MG IV PUSH (19:18)
[2024-12-29 19:40] LABS: Amphetamine Screen Urine Positive (Negative)
[2024-12-29] MEDS: RAPID SEQUENCE INTUBATION KIT 1 EACH (19:42)
[2024-12-29] MEDS: VANCOMYCIN 1,250 MG/NS 250 ML 1,250 MG/250 ML BAG 166.67 MG IVPB (19:42)
[2024-12-29 19:44] LABS: Reflex Lactic Acid Yes or No Add Lactic
[2024-12-29 19:51] LABS: Add Urine Microscopic? YES; Appearance Urine Clear (Clear); Bacteria Urine None Seen /hpf; Bilirubin Urine Negative (Negative); Blood Urine 2+ (Negative); Color Urine Dark Yellow (Yellow); Glucose Urine UA Trace mg/dL (Negative); Hyaline Casts Urine Present /lpf; Ketones Urine Trace mg/dL (Negative); Leukocyte Esterase Ur Negative LEU/UL (Negative); Mucus Urine Present /lpf; Need Manual Microscopic Reviewed; Nitrate Urine Negative (Negative); Protein Urine 3+ mg/dL (Negative); Specific Grav Ur 1.034 (1.001-1.035); Squamous Epithelial Cell Urine None Seen /hpf (Few); WBC Urine 0-5 /hpf (0-3)
--- NOTE | 2024-12-29 19:51 | PC.NURSE ---
1914 Patient set up for intubation. At bedside; Dr Dangelo Alcazar RN's RT -Brie and Radisson. 1916 20mg Etomidate given IV, 1917 Succinylcholine 100mg IV given, Patient intubated with 7.5 ETT at 1920- positive color change 23cm at lip. 16g OG inserted by Inge OSPINA with placement checked with air bolus and contents aspirated. Taped at 58cm/lip @ 1924
--- NOTE | 2024-12-29 19:56 | PC.NURSE ---
193 report to Renae OSPINA
--- NOTE | 2024-12-29 19:58 | ECG_ITS ---
Test Date: 2024-12-29 19:58:08 Measurements Intervals [place] Rate: 114 P: 50 ME: 116 QRS: -12 QRSD: 103 T: 38 QT: 319 QTc: 441 Interpretive Statements SINUS TACHYCARDIA WITH SHORT ME INTERVAL INCOMPLETE RIGHT BUNDLE BRANCH BLOCK [90+ ms QRS DURATION, TERMINAL R IN V1/V2, 40+ ms S IN I/aVL/V4/V5/V6] INFERIOR MYOCARDIAL INFARCTION , PROBABLY OLD [40+ ms Q WAVE AND/OR ST/T ABNORMALITY IN II/aVF] Compared to ECG 12/29/2024 18:06:11 NO SIGNIFICANT CHANGES Electronically Signed On 12-30-2024 15:41:56 [employer] by Nas Melton M.D.
[2024-12-29 20:23] LABS: Lactic Acid 1.8 mmol/L (0.7-2.0)
[2024-12-29] MEDS: MIDAZOLAM 100MG/NS 100ML(*CRX) 100 MG/100 ML BAG IV CONT (20:32)
[2024-12-29] MEDS: FENTANYL 2,500MCG/NS250ML(*CRX 2,500 MCG/250 ML BAG IV CONT (20:32)
--- NOTE | 2024-12-29 20:44 | PC.NURSE ---
Pt person to contact for update/ status changes: Nima Mcgrath ([phone]).
[2024-12-29 20:50] LABS: MRSA (PCR) NOT DETECTED (NOT DETECTE)
[2024-12-29] MEDS: EPINEPHrine INJ 1 MG in DEXTROSE 5% IN WATER 250 ML 15.06 MG IV CONT (22:59)
[2024-12-29] MEDS: NOREPINEPHRINE 8 MG/D5W 250 ML 8 MG/250 ML BAG 12 MG (23:05)
[2024-12-29] MEDS: EPINEPHrine INJ 1 MG/10 ML SYRINGE 5 MG (23:05)
[2024-12-29] MEDS: SODIUM BICARBONATE 8.4% 50 MEQ/50 ML SYRINGE 100 MEQ (23:06)
--- NOTE | 2024-12-29 23:07 | PC.NURSE ---
This RN was on the phone with Tiffany from [facility] transfer center giving report for pt transfer to [place]. Tiffany from [facility] transfer asked RN for pt mechanical ventilation settings. RN looked in pt chart and monitor and could not find information on pt settings. This RN walked into pt room to look at vent settings and RN noticed pt skin looked mottled and checked for a pulse and could not feel one. This RN grabbed RN Inge Shaver for a second opinion. BHAVESH Alcazar could not feel a pulse either. BHAVESH Alcazar began compressions and this RN went and grabbed ED MD Ramírez and he called a code at 2134. 2139: RNs Inge, Tiago, Preeti Barba, Dayna, plate molder MD Dangelo Marsh, security, crash cart, and ED respiratory. RNs are doing manual compressions until they got Jose Ramon on pt at 2139. MD Ramírez verbally orders sodium bicarb at 2140 and to shock pt at 200 amandeep at 2140. Fentyl and versed drips are paused. First dose of epi was given at 2141. We did ultrasound and pulse check at 2142. Pt still has no pulse and is in PEA. Pt was given another dose of epi at 2143 and bicarb at 2143. Another femoral pulse check at 2144. Pt is now in ROSC and we have a pulse. Pt vitals at this time are 202 HR, 146/111. Pt vitals at 2151 are 110 HR and 130/118. 2156: Pt is ruled as in PEA and CPR/compressions resumed and one of EPI is given. Sodium bicarb was given at 2158. Pulse check was done at 2199 and was ruled as PEA. Compressions/CPR resumed and another dose of epi given. Another pulse check was done at 2201 and pt is in ROSC again and is in narrow complex tachycardia with a blood pressure of 204/118. 2215: Pt loses a pulse again and monitor shows vtach. BHAVESH Barba, charges monitor to 200 shruti and shocks pt. Cpr and compressions resumed. Another dose of epi was given at 2216. Pulse check done at 2218 and pt still had no pulse and was PEA. A dose of epi and bicarb given at 2219. Pulse check done at 2221 and got pulse back pt is in ROSC again. Pt vitals are 160 HR, 165/24 blood pressure. MD Ramírez verbally orders a levophed drip at 2224. Pt vitals are 123 HR, 99/61 at 2228. 2230 pt vitals were 77 HR, 123/89 blood pressure. 2234: Pt codes again and has no pulse. Shock was delivered to pt at 2235 at 200j. CPR and compressions resumed. Pt was given epi dose at 2235. Pulse check was done at 2237 and showed PEA on monitor. CPR resumed. Epi was given at 2239. Pulse check at 2241 still showed PEA. Vitals are 62 HR, 82% at 224. Pt was given another dose of epi at 2242 and a pulse check showing sinus tach with HR of 116 and oxygen at 89%. MD Ramírez verbally ordered another epi dose through pt central line at 2243. Pt vitals were 136 HR, 93%, and 233/161 at 224. Pt vitals at 2247 are 97% and 174/116. pt vitals at 225 are 94% and 78/68. 2258: Pt coded again and has no pulse. CPR/compressions resumed. MD Ramírez verbally orders an EPI drip at 225. We pushed IV epi dose at 225. Pulse check done at 2300 and reads PEA. Another pulse check at 230 and pt is in sinus tach. Pt vitals are 122HR, 98%, and 134/53 at 2301. 2305 vitals are 119HR, 168/104. 2318: Pt coded again and has no pulse. CPR and compressions resumed. One of epi was given at 232. EPI drip was increased to 20 mcg per verbal order from MD ramírez. Another dose of sodium bicarb was given at this time as well. Levophed drip was increased to 24 mcg per verbal order from MD Ramírez at 2320. Pulse check at 2322 and vitals are 117 HR, 97%, 16 respirations, and 121/83 blood pressure.
[2024-12-30] VITALS (24 sets, daily range): BP systolic 64–221; BP diastolic 42–172; PULSE 105–152; RESP 16–23; TEMP 38–38.2; O2SAT 90–99
[2024-12-30] MEDS: PHENYLEPHRINE HCL INJ 50 MG in DEXTROSE 5% IN WATER 250 ML/245 ML BAG 12 ML IV CONT (00:11)
[2024-12-30] MEDS: EPINEPHrine INJ 1 MG in DEXTROSE 5% IN WATER 250 ML 301.2 MG IV CONT (00:27)
--- NOTE | 2024-12-30 00:28 | PC.NURSE ---
00:06: RN felt pt pulse and noticed that it felt faint and pt oxygen was not reading. RN felt for pt pulse and eventually lost pulse again. RN notified discharge planner and MD Ramírez and he called the code. CPR and compressions resumed. At 00:07 Rn pushed one of epi. Pulse check was done at 00:09 and we got a pulse back. pt was sinus tachy. Per MD ramírez he verbally orders another epi drip and to continue pushing epi until drip comes from pharmacy. Pt was given another dose of epi at 00:10 with a bounding pulse. BHAVESH Ordoñez felt pt pulse around 00:18 and noticed it felt faint again so he pushed another one of epi. At 00:21 one final dose one of epi was given. BHAVESH Humphrey got the epi drip from pharmacy and started epi drip at max dose per MD ramírez. Pt vitals are currently 109 HR, 92%, 16 respirations, and 64/53 blood pressure.
--- NOTE | 2024-12-30 00:39 | PC.NURSE ---
Due to pt low blood pressure MD Pierson verbally orders to increased pt levophed rate from 24 to 30 mcg/min.
[2024-12-30] MEDS: VANCOMYCIN 1,000 MG/NS 250 ML 1,000 MG/250 ML BAG 250 MG IVPB (00:50)
--- NOTE | 2024-12-30 01:24 | PC.NURSE ---
Per MD Pierson he verbally states to increase rates of levophed to 35mcg/min and phenylephrine to 200mcg/min
[2024-12-30 01:50] LABS: Alveolar/Arterial O2 Gradient 386.4 mmHg; Base Excess ABG -8.9 mEq/l (+/-2.0); Fractional Inspired Oxygen 100 %; HCO3 ABG 19.4 mEq/l (22.0-26.0); Oxygen Content ABG 17.5 %vol (16.0-22.0); Oxygen Saturation ABG 99.5 % (95.0-100.0); Oxyhemoglobin 99.1 % THb (90.0-100.0); PCO2 ABG 52.3 mmHg (35.0-45.0); PO2 ABG 274.3 mmHg (80.0-100.0); PO2 FiO2 Ratio Arterial Blood 2.74 %; Total Hemoglobin 12.1 g/dL (12.0-18.0)
[2024-12-30 01:52] LABS: Arterial Blood Gas PEEP 5 cmH2O; Arterial Blood Gas Vent Mode CMV; Arterial Blood Gas Ventilator rate 16 /MIN; Device VENTILATOR; Modified Allen's Test Pass; Site Drawn LEFT RADIAL; pH ABG 7.188 (7.350-7.450)
[2024-12-30 01:53] LABS: Arterial Blood Gas Tidal Volume 500 ml
== END 2024-12-30 02:22 | disposition short-term general hospital (02) ==
PROVIDERS: Emergency Medicine; Emergency Provider Emergency Medicine
DX: A41.9 Sepsis, unspecified organism (principal); R41.82 Altered mental status, unspecified; G93.40 Encephalopathy, unspecified; Z20.822 Contact with and (suspected) exposure to COVID-19; I10 Essential (primary) hypertension; Z86.711 Personal history of pulmonary embolism
CPT/HCPCS: 31500; 36415; 36556; 36600; 70450; 71045; 80053; 80307; 81001; 82805; 82948; 83605; 85018; 85025; 85610; 85730; 87040; 87181; 87637; 87641; 93005; 96365; 96367; 96374; 96375; 96376; 99291; A9270; C1751; J0171; J0330; J0692; J2060; J2250; J2371; J3010; J3370; J7030; J7060